=== PATIENT | male | born 1955 | race Hispanic/Latino ===

== ENCOUNTER 2017-10-07 07:54 | Inpatient (IN) | payer BC ==
[2017-09-30 11:09] VITALS: BMI 26.4
[2017-10-07] MEDS ORDERED: Absorbable Gelatin Sponge Size 100 ONE (08:38)
[2017-10-07] MEDS ORDERED: Rocuronium 10 mg/ml (5 ml) ONE (09:07)
[2017-10-07] MEDS ORDERED: Lidocaine 4% (Laryng-O-Jet) Kit MM ONE (09:07)
[2017-10-07] MEDS ORDERED: Succinylcholine 200 mg/10 ml Inj IV ONE (09:07)
[2017-10-07] MEDS ORDERED: Etomidate 20 mg/10ml Inj IV ONE (09:08)
[2017-10-07] MEDS ORDERED: Lactated Ringer's 1,000 ML IV ONE (10:00)
--- NOTE | 2017-10-07 12:07 | CP.PCM.HP ---
History of Present Illness - History of Present Illness History of Present Illness: 62 yr old M presented to same day surgery for scheduled right hip replacement s/ p fall at home a few months ago and failed conservative treatment including and not limited to anti-inflammatory medication, physical therapy and pain management. PMHx includes HTN, HLD, anxiety and arthritis. Patient seen and examined at bedside with attending-Dr. Lucas. Patient reports at this time his right hip pain is an 8/10. Denies chest pain, SOB, weakness, dizziness or visual changes. Surrogate decision maker: Agueda Gallardo (sister): [phone] PMD: Dr. Ruiz PMHx: HTN, HLD, anxiety and arthritis SurgHx: total Right knee replacement, total left knee replacement FMHx: mother at 71 from colon cancer, father at 69 from lung cancer SocHx: denies cigarette smoking, Etoh or drugs. reports occasionally smokes cigars. Lives with brother. Medications: Norvasc 10mg PO QD, Lipitor 10mg PO QHS, Zolpidem 10mg PO QHS, Xanax 2mg PO TID, Oxycodone 30 mg PO QID PRN pain Allergies: NKDA Present on Admission - Present on Admission Any Indicators Present on Admission: No History of DVT/PE: No History of Uncontrolled Diabetes: No Urinary Catheter: No Decubitus Ulcer Present: No History Surgical Site Infection Following: Orthopedic Procedures Review of Systems - Review of Systems All systems: reviewed and no additional remarkable complaints except (for what is mentioned in the HPI) - Constitutional Constitutional: absent: Chills, Fever - EENT Eyes: absent: Blurred Vision, Change in Vision Ears: absent: Dizziness Nose/Mouth/Throat: absent: Nasal Congestion, Nasal Discharge - Cardiovascular Cardiovascular: absent: Chest Pain, Dyspnea - Respiratory Respiratory: absent: Cough, Dyspnea - Gastrointestinal Gastrointestinal: absent: Abdominal Pain, Nausea - Genitourinary Genitourinary: absent: Difficulty Urinating, Dysuria - Musculoskeletal Musculoskeletal: Arthralgias (chronic intermittent mild knee pain) - Integumentary Integumentary: absent: Bleeding Lesions - Neurological Neurological: absent: Disequilibrium, Dizziness - Psychiatric Psychiatric: Anxiety. absent: Homicidal Ideation, Suicidal Ideation - Endocrine Endocrine: absent: Polydipsia, Polyphagia, Polyuria - Hematologic/Lymphatic Hematologic: absent: Easy Bleeding, Easy Bruising Past Patient History - Infectious Disease Hx of Infectious Diseases: None - Tetanus Immunizations Tetanus Immunization: Unknown - Past Medical History & Family History Past Medical History?: Yes - Past Social History Smoking Status: Former Smoker - CARDIAC Hx Cardiac Disorders: Yes Hx Hypercholesterolemia: Yes (sstopped cholesterol meds) Hx Hypertension: Yes - PULMONARY Hx Respiratory Disorders: No - NEUROLOGICAL Hx Neurological Disorder: No - HEENT Hx HEENT Problems: Yes Hx Cataracts: Yes Other/Comment: cateract extraction with implant. - RENAL Hx Chronic Kidney Disease: No - ENDOCRINE/METABOLIC Hx Endocrine Disorders: No - HEMATOLOGICAL/ONCOLOGICAL Hx Blood Disorders: Yes Hx AIDS: No Hx Anemia: Yes Hx Blood Transfusions: Yes Hx Human Immunodeficiency Virus (HIV): No - INTEGUMENTARY Hx Dermatological Problems: No - MUSCULOSKELETAL/RHEUMATOLOGICAL Hx Musculoskeletal Disorders: No Hx Arthritis: Yes Hx Back Pain: Yes Hx Falls: Yes (2013) Hx Herniated Disk: Yes Other/Comment: s/p Right TKR Oct 2015; wound vac, rolling walker - GASTROINTESTINAL Hx Gastrointestinal Disorders: No - GENITOURINARY/GYNECOLOGICAL Hx Genitourinary Disorders: No - PSYCHIATRIC Hx Psychophysiologic Disorder: Yes Hx Anxiety: Yes (xanax3) Hx Substance Use: No - SURGICAL HISTORY Hx Surgeries: Yes Hx Cataract Extraction: Yes (b/l with implant) Hx Joint Replacement: Yes (TKR Left 2011, TKR Right 10/2015) Hx Orthopedic Surgery: Yes (left knee replaced,corinne-tkr) Other/Comment: Aspiration Arthrogram left knee 08/09/14 - ANESTHESIA Hx Anesthesia: Yes Hx Anesthesia Reactions: No Hx Malignant Hyperthermia: No Has any member of the family had a problem w/ anesthesia?: No Meds Allergies/Adverse Reactions: Allergies Allergy/AdvReac Type Severity Reaction Status Date / Time No Known Allergies Allergy Verified 09/30/17 11:09 Physical Exam - Constitutional Appears: Non-toxic - Head Exam Head Exam: ATRAUMATIC, NORMOCEPHALIC - Eye Exam Eye Exam: EOMI, PERRL - ENT Exam ENT Exam: Mucous Membranes Moist - Neck Exam Neck exam: Positive for: Full Rom. Negative for: Lymphadenopathy - Respiratory Exam Respiratory Exam: Clear to Auscultation Bilateral, NORMAL BREATHING PATTERN - Cardiovascular Exam Cardiovascular Exam: REGULAR RHYTHM, +S1, +S2 - GI/Abdominal Exam GI & Abdominal Exam: Normal Bowel Sounds, Soft. absent: Tenderness - Extremities Exam Extremities exam: Positive for: full ROM. Negative for: pedal edema - Neurological Exam Neurological exam: Alert, CN II-XII Intact, Oriented x3 - Psychiatric Exam Psychiatric exam: Normal Affect, Normal Mood - Skin Skin Exam: Dry, Intact, Warm Results - Vital Signs Recent Vital Signs: Last Vital Signs Temp 98 F 10/07/17 09:33 Pulse 68 10/07/17 09:33 Resp 18 10/07/17 09:33 BP 125/71 10/07/17 09:33 Pulse Ox 988 H 10/07/17 09:33 - Labs Labs: Laboratory Results - last 24 hr 10/07/17 09:00 Blood Type B NEGATIVE Antibody Screen Negative Crossmatch See Detail BBK History Checked Patient has bt Assessment & Plan - Assessment and Plan (Free Text) Assessment: 62 yr old M presented to same day surgery for scheduled right hip replacement. Patient seen and examined at bedside with attending-Dr. Lucas. Patient is stable for surgery. -continue current management -resume home meds after surgery -start DVT prophylaxis after surgery - Date & Time Date: 10/07/17 Time: 09:50
[2017-10-07] MEDS ORDERED: oxyCODONE 10 mg Immediate Release Tab PO PRN (15:51)
--- NOTE | 2017-10-07 20:39 | CP.PCM.CON ---
History of Present Illness - History of Present Illness History of Present Illness: Consultation for abnormal EKG HPI 62-year-old male with past medical history significant for hypertension dyslipidemia anxiety severe osteoarthritis status post bilateral knee replacement who was scheduled to undergo right hip replacement yesterday status post fall a few months ago and failed conservative therapy with anti- inflammatory therapy and physical therapy who was scheduled to undergo his surgery but was noted to have PVCs on his EKG and Holter monitor and is being evaluated for preoperative cardiovascular risk stratification. According to the patient he was fairly active prior to the fall can do more than 4 metabolic equivalents of activity at baseline denies having any ischemic symptoms and had undergone an echocardiogram that was ordered by Dr. Ortiz about few years ago denies any chest pain shortness of breath palpitations PND's or orthopnea's fairly active at baseline with no active ischemic symptoms. He does complain of occasionally having a skipped beat every once in a few months which does have him concern for his cardiovascular evaluation. Past medical history as stated above significant for hypertension dyslipidemia advanced osteoarthritis status post bilateral knee replacements family history significant for colon cancer and lung cancer social history he smokes 1-2 cigars a week denies any alcohol or illicit drug use home medications include Norvasc Lipitor Xanax oxycodone allergies no known drug allergies. Review of Systems - Review of Systems All systems: reviewed and no additional remarkable complaints except - Constitutional Constitutional: As Per HPI - EENT Eyes: As Per HPI Ears: As Per HPI Nose/Mouth/Throat: As Per HPI - Cardiovascular Cardiovascular: As Per HPI - Respiratory Respiratory: As Per HPI - Gastrointestinal Gastrointestinal: As Per HPI - Genitourinary Genitourinary: As Per HPI - Reproductive: Male Reproductive:Male: As Per HPI - Musculoskeletal Musculoskeletal: As Per HPI - Integumentary Integumentary: As Per HPI - Neurological Neurological: As Per HPI - Psychiatric Psychiatric: As Per HPI - Endocrine Endocrine: As Per HPI - Hematologic/Lymphatic Hematologic: As Per HPI Past Patient History - Infectious Disease Hx of Infectious Diseases: None - Tetanus Immunizations Tetanus Immunization: Unknown - Past Medical History & Family History Past Medical History?: Yes - Past Social History Smoking Status: Former Smoker - CARDIAC Hx Cardiac Disorders: Yes Hx Hypercholesterolemia: Yes (sstopped cholesterol meds) Hx Hypertension: Yes - PULMONARY Hx Respiratory Disorders: No - NEUROLOGICAL Hx Neurological Disorder: No - HEENT Hx HEENT Problems: Yes Hx Cataracts: Yes Other/Comment: cateract extraction with implant. - RENAL Hx Chronic Kidney Disease: No - ENDOCRINE/METABOLIC Hx Endocrine Disorders: No - HEMATOLOGICAL/ONCOLOGICAL Hx Blood Disorders: Yes Hx AIDS: No Hx Anemia: Yes Hx Blood Transfusions: Yes Hx Human Immunodeficiency Virus (HIV): No - INTEGUMENTARY Hx Dermatological Problems: No - MUSCULOSKELETAL/RHEUMATOLOGICAL Hx Musculoskeletal Disorders: No Hx Arthritis: Yes Hx Back Pain: Yes Hx Falls: Yes (2013) Hx Herniated Disk: Yes Other/Comment: s/p Right TKR Oct 2015; wound vac, rolling walker - GASTROINTESTINAL Hx Gastrointestinal Disorders: No - GENITOURINARY/GYNECOLOGICAL Hx Genitourinary Disorders: No - PSYCHIATRIC Hx Psychophysiologic Disorder: Yes Hx Anxiety: Yes (xanax3) Hx Substance Use: No - SURGICAL HISTORY Hx Surgeries: Yes Hx Cataract Extraction: Yes (b/l with implant) Hx Joint Replacement: Yes (TKR Left 2011, TKR Right 10/2015) Hx Orthopedic Surgery: Yes (left knee replaced,corinne-tkr) Other/Comment: Aspiration Arthrogram left knee 08/09/14 - ANESTHESIA Hx Anesthesia: Yes Hx Anesthesia Reactions: No Hx Malignant Hyperthermia: No Has any member of the family had a problem w/ anesthesia?: No Meds Allergies/Adverse Reactions: Allergies Allergy/AdvReac Type Severity Reaction Status Date / Time No Known Allergies Allergy Verified 09/30/17 11:09 - Medications Medications: Current Medications Alprazolam (Xanax) 2 mg PO TID PRN PRN Reason: Anxiety Amlodipine Besylate (Norvasc) 10 mg PO DAILY [facility] Atorvastatin Calcium (Lipitor) 10 mg PO HS [facility] Dextrose/Sodium Chloride (Dextrose 5%-0.45% Ns 500 Ml) 500 mls @ 80 mls/hr IV .Q6H15M [facility] Stop: 10/08/17 19:07 Oxycodone HCl (Oxycodone Immediate Release Tab) 30 mg PO QID PRN PRN Reason: Pain, moderate (4-7) Zolpidem Tartrate (Ambien) 5 mg PO HS [facility] Physical Exam - Constitutional Appears: Well - Head Exam Head Exam: ATRAUMATIC, NORMAL INSPECTION, NORMOCEPHALIC - Eye Exam Eye Exam: EOMI, Normal appearance, PERRL Pupil Exam: NORMAL ACCOMODATION, PERRL - ENT Exam ENT Exam: Mucous Membranes Moist, Normal Exam - Neck Exam Neck exam: Positive for: Normal Inspection - Respiratory Exam Respiratory Exam: Clear to Auscultation Bilateral, NORMAL BREATHING PATTERN - Cardiovascular Exam Cardiovascular Exam: REGULAR RHYTHM, RRR, +S1, +S2, Systolic Murmur - GI/Abdominal Exam GI & Abdominal Exam: Normal Bowel Sounds, Soft. absent: Tenderness - Extremities Exam Extremities exam: Positive for: normal inspection - Back Exam Back exam: NORMAL INSPECTION - Neurological Exam Neurological exam: Alert, CN II-XII Intact, Normal Gait, Oriented x3, Reflexes Normal - Psychiatric Exam Psychiatric exam: Normal Affect, Normal Mood - Skin Skin Exam: Dry, Intact, Normal Color, Warm Results - Vital Signs Recent Vital Signs: Last Vital Signs Temp 97.8 F 10/07/17 16:13 Pulse 81 10/07/17 16:13 Resp 18 10/07/17 16:13 BP 119/68 10/07/17 16:13 Pulse Ox 94 L 10/07/17 16:13 - Labs Labs: Laboratory Results - last 24 hr 10/07/17 09:00 Blood Type B NEGATIVE Antibody Screen Negative Crossmatch See Detail BBK History Checked Patient has bt Assessment & Plan (1) Preop cardiovascular exam Assessment and Plan: As per ACC/AHA guidelines he can proceed with planned surgery with low risk for perioperative cardiac event will need outpt event monitor to assess for any arrhythmias Status: Acute (2) Abnormal EKG Assessment and Plan: PVC's noted hx of intermittent palpitations outpt event monitor Status: Acute (3) PVC (premature ventricular contraction) Status: Acute (4) Total knee replacement status Status: Acute (5) Hypertension Assessment and Plan: cont home meds Status: Chronic
--- NOTE | 2017-10-08 09:06 | CP.PCM.PN ---
Subjective - Date & Time of Evaluation Date of Evaluation: 10/08/17 Time of Evaluation: 09:57 - Subjective Subjective: Patient seen and examined at bedside with attending-Dr. Lucas. Awake, alert, cooperative with exam. Patient is NPO and aware he will go for right hip replacement later today. Denies chest pain, palpitations, SOB, headache or weakness. Objective - Vital Signs/Intake and Output Vital Signs (last 24 hours): Temp Pulse Resp BP Pulse Ox 98.2 F 65 20 113/71 97 10/08/17 08:04 10/08/17 08:04 10/08/17 08:04 10/08/17 08:04 10/08/17 08:04 - Medications Medications: Current Medications Alprazolam (Xanax) 2 mg PO TID PRN PRN Reason: Anxiety Last Admin: 10/08/17 06:35 Dose: 2 mg Amlodipine Besylate (Norvasc) 10 mg PO DAILY [facility] Atorvastatin Calcium (Lipitor) 10 mg PO [facility] Last Admin: 10/07/17 22:42 Dose: 10 mg Dextrose/Sodium Chloride (Dextrose 5%-0.45% Ns 500 Ml) 500 mls @ 80 mls/hr IV .Q6H15M [facility] Stop: 10/08/17 19:07 Last Admin: 10/08/17 06:31 Dose: 80 mls/hr Oxycodone HCl (Oxycodone Immediate Release Tab) 30 mg PO QID PRN PRN Reason: Pain, moderate (4-7) Zolpidem Tartrate (Ambien) 5 mg PO [facility] Last Admin: 10/07/17 22:44 Dose: 5 mg - Constitutional Appears: No Acute Distress - Head Exam Head Exam: ATRAUMATIC, NORMOCEPHALIC - Eye Exam Eye Exam: EOMI - ENT Exam ENT Exam: Mucous Membranes Moist - Neck Exam Neck Exam: Full ROM - Respiratory Exam Respiratory Exam: NORMAL BREATHING PATTERN - Cardiovascular Exam Cardiovascular Exam: REGULAR RHYTHM, +S1, +S2 - GI/Abdominal Exam GI & Abdominal Exam: Soft, Normal Bowel Sounds - Extremities Exam Extremities Exam: Full ROM. absent: Pedal Edema - Neurological Exam Neurological Exam: Alert, Awake, CN II-XII Intact Assessment and Plan - Assessment and Plan (Free Text) Assessment: 62 yr old M admitted for scheduled right hip replacement s/p xray finding of degenerative disease and chronic persistent pain after mechanical fall. Patient failed conservative treatment. Patient is medically stable for surgery and was cleared by cardiology. -continue current management -resume home meds after surgery -start DVT prophylaxis after surgery
--- NOTE | 2017-10-08 09:55 | CP.PCM.PN ---
<Giulia Perez - Last Filed: 10/08/17 09:50> Subjective - Date & Time of Evaluation Date of Evaluation: 10/08/17 Time of Evaluation: 09:50 - Subjective Subjective: PGY2 progress note for cardiology, Dr. Pressley 62 year old male with past medical history of HTN, HLD, anxiety and arthiritis presented to hospital for right hip replacement s/p fall a few weeks ago to be done by Dr. Briceno. Cardiology consulted for medical clearance. On admission , pt was noted to have an abnormal EKG showing NSR with 1 PVC. Pt seen and examined at bedside. No acute events overnight. Pt resting comfortably. Denies having any CP, SOB, abd pain, N/V/D/C, palpitations. 12 point ROS are negative except for the above mentioned. PMHx: stated above Sx; B/L TKR Social; denies tobacco, ETOH or drug use denies FHX of heart problems Medications: Norvasc 10mg PO QD, Lipitor 10mg PO QHS, Zolpidem 10mg PO QHS, Xanax 2mg PO TID, Oxycodone 30 mg PO QID PRN pain Allergies: NKDA Objective - Vital Signs/Intake and Output Vital Signs (last 24 hours): Temp Pulse Resp BP Pulse Ox 98.2 F 65 20 113/71 97 10/08/17 08:04 10/08/17 08:04 10/08/17 08:04 10/08/17 08:04 10/08/17 08:04 - Medications Medications: Current Medications Alprazolam (Xanax) 2 mg PO TID PRN PRN Reason: Anxiety Last Admin: 10/08/17 06:35 Dose: 2 mg Amlodipine Besylate (Norvasc) 10 mg PO DAILY [facility] Atorvastatin Calcium (Lipitor) 10 mg PO HS [facility] Last Admin: 10/07/17 22:42 Dose: 10 mg Dextrose/Sodium Chloride (Dextrose 5%-0.45% Ns 500 Ml) 500 mls @ 80 mls/hr IV .Q6H15M [facility] Stop: 10/08/17 19:07 Last Admin: 10/08/17 06:31 Dose: 80 mls/hr Oxycodone HCl (Oxycodone Immediate Release Tab) 30 mg PO QID PRN PRN Reason: Pain, moderate (4-7) Zolpidem Tartrate (Ambien) 5 mg PO HS [facility] Last Admin: 10/07/17 22:44 Dose: 5 mg - Constitutional Appears: Non-toxic, No Acute Distress - Head Exam Head Exam: ATRAUMATIC - ENT Exam ENT Exam: Mucous Membranes Moist - Respiratory Exam Respiratory Exam: Clear to Ausculation Bilateral. absent: Accessory Muscle Use , Rales, Rhonchi, Wheezes, Respiratory Distress - Cardiovascular Exam Cardiovascular Exam: REGULAR RHYTHM, +S1, +S2. absent: Gallop, Rubs, Murmur - GI/Abdominal Exam GI & Abdominal Exam: Soft, Normal Bowel Sounds. absent: Distended, Firm, Guarding, Rigid, Tenderness, Organomegaly - Extremities Exam Extremities Exam: absent: Pedal Edema, Tenderness Additional comments: B/L DP pulses present - Neurological Exam Neurological Exam: Alert, Awake, Oriented x3 - Psychiatric Exam Psychiatric exam: Normal Affect, Normal Mood - Skin Skin Exam: Dry, Intact, Normal Color, Warm Assessment and Plan - Assessment and Plan (Free Text) Assessment: 62 year old male with past medical history of HTN, HLD, anxiety and arthiritis is being seen for cardiac clearance for right hip surgery. EKG done yesterday showed NSR with one PVC 1. Cardiac clearance for ortho surgery - Pt has no history of CAD - EKG done on admission showed 1 PVC. Will consider checking electrolyte levels (Mg) - Pt has good functional capacity. 2. HTN - Continue to monitor VS - Currently on Norvasc 10 mg QD 3. HLD - Continue home medication, lipitor 10 mg po qd Case will be discussed with attending, Dr. Pressley <Rich Pressley - Last Filed: 10/08/17 10:31> Objective - Vital Signs/Intake and Output Vital Signs (last 24 hours): Temp Pulse Resp BP Pulse Ox 98.2 F 65 20 113/71 97 10/08/17 08:04 10/08/17 08:04 10/08/17 08:04 10/08/17 08:04 10/08/17 08:04 - Medications Medications: Current Medications Alprazolam (Xanax) 2 mg PO TID PRN PRN Reason: Anxiety Last Admin: 10/08/17 06:35 Dose: 2 mg Amlodipine Besylate (Norvasc) 10 mg PO DAILY [facility] Atorvastatin Calcium (Lipitor) [address] [facility] Last Admin: 10/07/17 22:42 Dose: 10 mg Dextrose/Sodium Chloride (Dextrose 5%-0.45% Ns 500 Ml) 500 mls @ 80 mls/hr IV .Q6H15M [facility] Stop: 10/08/17 19:07 Last Admin: 10/08/17 06:31 Dose: 80 mls/hr Oxycodone HCl (Oxycodone Immediate Release Tab) 30 mg PO QID PRN PRN Reason: Pain, moderate (4-7) Zolpidem Tartrate (Ambien) [address] [facility] Last Admin: 10/07/17 22:44 Dose: 5 mg Assessment and Plan (1) Preop cardiovascular exam Assessment & Plan: As per ACC/AHA guidelines he can proceed with planned surgery with low risk for perioperative cardiac event Status: Acute (2) Abnormal EKG Assessment & Plan: PVC's noted Status: Acute (3) PVC (premature ventricular contraction) Assessment & Plan: outpt event monitor Status: Acute (4) Total knee replacement status Status: Acute (5) Hypertension Assessment & Plan: cont home meds Status: Chronic Attending/Attestation - Attestation I have personally seen and examined this patient.: Yes I have fully participated in the care of the patient.: Yes I have reviewed all pertinent clinical information, including history, physical exam and plan: Yes
[2017-10-08] MEDS ORDERED: Thrombin Topical 5,000 Int Units Spray Kit ONE (10:54)
[2017-10-08] MEDS ORDERED: Bupivacaine 0.5% Inj(30mL) ONE (10:54)
[2017-10-08] MEDS ORDERED: Bacitracin Ointment 30 GM TUBE ONE (10:54)
[2017-10-08] MEDS ORDERED: Absorbable Gelatin Sponge Size 100 ONE (14:57)
[2017-10-08] MEDS ORDERED: Rocuronium 10 mg/ml (5 ml) ONE ×2 (15:00→19:02)
[2017-10-08] MEDS ORDERED: Succinylcholine 200 mg/10 ml Inj IV ONE (15:00)
[2017-10-08] MEDS ORDERED: Propofol 10 mg/ml Inj (20 ML) ONE (15:01)
[2017-10-08] MEDS ORDERED: Phenylephrine 10 mg/ml Inj ONE (15:04)
[2017-10-08] MEDS ORDERED: Lactated Ringer's 1,000 ML IV ONE ×2 (15:50→19:00)
[2017-10-08] MEDS ORDERED: Morphine 1 mg/ml preservative-free Inj(Duramorph) ONE (15:51)
[2017-10-08] MEDS ORDERED: Midazolam 2 MG/2 ML VIAL ONE (15:51)
[2017-10-08] MEDS ORDERED: Sodium Chloride 0.9% 1,000 ML IV ONE (15:55)
[2017-10-08] MEDS ORDERED: Dexamethasone 4 mg/1 ml ONE (17:03)
[2017-10-08] MEDS ORDERED: HEMOSTATIC MATRIX 10 ML DIS.NEEDLE TOP ONE (18:58)
--- NOTE | 2017-10-08 19:24 | RAD ---
PROCEDURE: Intraoperative Fluoroscopy. HISTORY: Right hip arthritis FINDINGS: Fluoroscopic assistance was provided for right total hip replacement.
--- NOTE | 2017-10-08 19:39 | PCM.SURG1 ---
Surgeon's Initial Post Op Note - Surgeon's Notes Surgeon: Janak Cinder Snapper: 1st assist Dr Jarrod Agarwal/ 2nd assist MIGUEL Schuster Type of Anesthesia: General Endo, Spinal Anesthesia Administered By: DR Marcio Lang Pre-Operative Diagnosis: post traumatic Osteoarthritis R HIP Operative Findings: as above. severe synovits. labral tear R Hip Post-Operative Diagnosis: as above Operation Performed: R THR (anterior approach). femoral neck osteoptmy. arthrotomy/synopvectomy. release iliopsoas tendon Specimen/Specimens Removed: bone/synovium/.cartiulage/tendon Estimated Blood Loss: EBL {In ML}: 200 Blood Products Given: N/A Drains Used: No Drains Post-Op Condition: Good Date of Surgery/Procedure: 10/08/17 Time of Surgery/Procedure: 17:05 (1550-time in room)
[2017-10-08] MEDS ORDERED: HYDROmorphone 0.5 mg/0.5 ml ISec IVP PRN (19:49)
[2017-10-08] MEDS: Lactated Ringer's 1,000 ML IV SCH (21:57)
[2017-10-08] MEDS ORDERED: DiphenhydrAMINE 50 mg/ml Inj IVP PRN (22:15)
[2017-10-08] MEDS ORDERED: Naloxone 0.4 mg/ml Inj (Adult) IVP PRN (22:15)
[2017-10-08] MEDS: ceFAZolin 1 GM in Sodium Chloride 0.9% 100 ML IVPB SCH (23:49)
[2017-10-09] MEDS: Lactated Ringer's 1,000 ML IV SCH ×3 (02:33→16:29)
[2017-10-09 06:20] LABS: HEMOGLOBIN 10.9 g/dL (12.0-18.0); MEAN CELL VOLUME 86.1 fl (80.0-94.0); MEAN CORPUSCULAR HGB CONC 33.7 g/dL (33.0-37.0); RBC 3.75 Mil/uL (4.40-5.90); RED CELL DISTRIBUTION WIDTH 13.1 % (11.5-14.5); WHITE BLOOD COUNT 13.6 K/uL (4.8-10.8)
[2017-10-09 07:12] LABS: BLOOD UREA NITROGEN 11 mg/dl (9-20); CALCIUM 8.4 mg/dL (8.4-10.2); GFR AFRICAN-AMERICAN > 60; GFR NON-AFRICAN AMERICAN > 60
--- NOTE | 2017-10-09 07:37 | RAD ---
PROCEDURE: Right Hip with Pelvis Portable Radiographs. HISTORY: s/p R THR COMPARISON: Right hip with pelvis radiographs 09/30/2017. FINDINGS: BONES: Patient now seen to be status post right total hip replacement with prostatic apparatus appearing in good apparent position. No interval fracture or definitive dislocation. Postoperative changes seen in local soft tissues surrounding the right hip joint with skin kate noted laterally. No destructive bony lesion appreciated. OTHER FINDINGS: None. IMPRESSION: Status post right total hip replacement as discussed above.
[2017-10-09 07:58] VITALS: BP 143/74; PULSE 86; RESP 20; O2SAT 98
[2017-10-09] MEDS: ceFAZolin 1 GM in Sodium Chloride 0.9% 100 ML IVPB SCH (09:38)
[2017-10-09] MEDS ORDERED: Enoxaparin 40 mg Syringe SC SCH ×2 (10:30→19:00)
--- NOTE | 2017-10-09 13:05 | OP ---
PROCEDURE DATE: 10/08/2017 PREOPERATIVE DIAGNOSIS: Post-traumatic osteoarthritis of the right hip. POSTOPERATIVE DIAGNOSES: Post-traumatic osteoarthritis of the right hip with severe synovitis and labral tear of the right hip. SURGEON: Curt Briceno MD. DRYWALL FINISHING FOREMAN: Kelli Agarwal MD. SECOND PATTERN DEVELOPER: Nery Montiel, certified registered nursing first aid instructor. TYPE OF ANESTHESIA: General endotracheal and spinal anesthesia. ANESTHESIA ADMINISTERED BY: Agusto Allen MD. OPERATIVE FINDINGS: Severe post-traumatic osteoarthritis of the right hip with synovitis of the right hip and a labral tear of the right hip. OPERATIONS PERFORMED: 1. Right total hip replacement, anterior approach. 2. Femoral neck osteotomy. 3. Arthrotomy and synovectomy and debridement of glenoid labral tear. 4. Release iliopsoas tendon. SPECIMENS REMOVED: Bone, synovium, cartilage, and portion of tendon. ESTIMATED BLOOD LOSS: Approximately 200 mL. BLOOD PRODUCTS GIVEN: None. DRAINS: None. POSTOPERATIVE CONDITION: Stable. TIME OF SURGERY: 1705 incision time. Time in the room 1550. OPERATIVE INDICATION: Abel Pretty is a 62-year-old gentleman who is status post an injury in a fall at [employer] [facility]. The patient's hips were well compensated prior to this fall and after the fall, the patient noted marked deterioration. The patient was excellent in conservative management consisting of anti-inflammatory medication, activity modification, and weight loss. The patient underwent significant weight loss. The symptomatology did not change. The patient has severe and persistent pain in the hip. Pros, cons, risks, and benefits of hip replacement arthroplasty were discussed. Possibility of mechanical failure, infection, thromboembolic disease, secondary or tertiary surgery were discussed. The patient can no longer withstand the discomfort and wished the surgery to be accomplished. OPERATIVE PROCEDURE: After the satisfactory induction of spinal and general anesthesia by Dr. Allen; after having identified side, site, and procedure and a critical pause/time-out; after the satisfactory induction of the anesthetic, the patient identified as Abel Pretty in the supine position with all bony prominences well padded. The patient was placed in the [facility] traction positioner. All bony prominences well padded. After having obtained informed consent; after having identified side, site and procedure and a critical pause/time-out, the right lower extremity was prepped and free draped in the usual fashion for lower extremity surgery. The topographic anatomy of the hip was marked, the anterosuperior iliac spine. Under the surgeon's direction, the fluoroscope was positioned, video images were generated, therapeutic decisions were made therefrom. This having been accomplished and after having obtained informed consent, an incision was described 3 cm posterior to the ASIS and 1 fingerbreadth distal. The incision was superficial to the tensor fascia femoris muscle and extended approximately 4-1/2 inches distally, superficial to the muscle belly. The skin incision was carried down through the skin and subcutaneous tissue. The fascia of the tensor fascia femoris was identified and grasped with an Allis clamp. The tensor fascia femoris muscle was a digastric muscle and the muscle belly was brought down. The Medacta retractor was placed and the fascia at the posterior aspect was developed. This having been accomplished, the Medacta retractor was placed deep to the rectus femoris and placed in a horizontal latitude. The fascia was identified and carefully divided. The reflected head of rectus femoris was released with internal rotation of the hip and this having been accomplished, the wound was thoroughly irrigated. The anterior branch of the lateral femoral circumflex vessels were controlled using tonsil clamps and Aquamantys. Hemostasis having been controlled, the capsulotomy was accomplished extending from the lateral aspect of the acetabulum. Medacta retractors were placed. Modified Hohmann retractors were placed on both sides of the femoral neck. The dissection of the capsule was carried down medially to the intertrochanteric tubercle. This was elevated and brought back laterally. This flap was raised intact. This having been accomplished, the adhesions were released. The retractors were placed and with two turns of traction and with reference virtually intraoperatively to planning of the femoral neck osteotomy, the femoral neck osteotomy was critical to the leg length. Femoral neck osteotomy was accomplished and with further traction and rotation, the head and neck were delivered into the wound. Using a 1/2-inch curved osteotome, the cut surface was brought into the wound. The corkscrew was placed. The corkscrew was used to remove the femoral head with adhesions. This having been accomplished, there was found to be a contracture of the pubofemoral ligament which was released and the acetabulum was exposed. The labrum was excised. The deep modified Charnley retractor was placed exposing the acetabulum. The superior aspect of the acetabulum was identified and the reaming was accomplished. Femoral head was measured 48 mm. This was removed. The pulvinar was excised. Arthrotomy and synovectomy were accomplished and there was found to be evidence of a large labral tear. The labral tear was excised as well. This having been accomplished, reaming commenced with a 46 mm reamer to 50 mm reamer in the approximately 40 degrees of abduction and 20 degrees of anteversion. The reamings were denuded of articular cartilage to allow bone grating. Arthrotomy and synovectomy having been accomplished, arthrotomy and excision of labrum having been accomplished, careful planning of the intraoperative femoral neck osteotomy had been accomplished as well. This having been accomplished, the trialing was accomplished. The cup was found to be excellent. Bone grafting was accomplished to the acetabulum and the 50 mm Medacta cup was placed in approximately 40 degrees of abduction and 15-20 degrees of anteversion. The cup position was found to be excellent and stable. This having been accomplished, attention was turned to the femur. The bone hook was placed. There was found to be capsular contractures. The pubofemoral ligament was released. A portion of the iliopsoas tendon was released as well. This having been accomplished, further external rotation was accomplished and in the area of the piriformis fossa using great care to control hemostasis, the soft tissue structures were released from the piriformis fossa. This having been accomplished, the iliofemoral ligament was released. This having been accomplished, the femoral neck was mobilized and was exposed using the so called *------* retractors medially and anteriorly. The proximal femur was identified and with abduction was delivered into the wound, the box chisel was used to remove the bridge of bone between the neck and the trochanter. The bur was found to enter the canal. The rasp was found to enter the canal. Sequential broaching was carried out to a #3 femoral component. Broach was introduced. Trialing was accomplished with a 28 mm standard neck with the 50 mm outer bearing. The hip was reduced and found to be stable in all planes. This having been accomplished, the hip was again dislocated. Hemostasis was controlled with the Aquamantys. The #3 Medacta femoral component was introduced, non-collared. The standard neck with the 50 mm outer bearing was placed, ceramic. The hip was reduced and found to be stable in all planes. The wound was thoroughly irrigated. Hemostasis was controlled. Iliopsoas tendon had released. The leg lengths were essentially equal on verification with image intensification views. This having been accomplished, hemostasis was controlled with the Aquamantys, the capsular layer was replaced, and closure was in layers with 0 Quill followed by 0 Quill and kate for skin. Compression dressing was applied. The patient was stable in recovery. Neurocirculatory status was intact. Curt Briceno MD
--- NOTE | 2017-10-09 13:40 | CP.PCM.PN ---
Subjective - Date & Time of Evaluation Date of Evaluation: 10/09/17 Time of Evaluation: 13:38 - Subjective Subjective: Patient states pain is well controlled. He denies numbness/tingling. Good appetite, denies CP/SOb/dizziness/ Objective - Vital Signs/Intake and Output Vital Signs (last 24 hours): Temp Pulse Resp BP Pulse Ox 100.9 F H 86 20 143/74 98 10/09/17 07:57 10/09/17 09:38 10/09/17 07:57 10/09/17 09:38 10/09/17 07:57 Intake and Output: 10/09/17 10/09/17 06:59 18:59 Intake Total 400 Balance 400 - Medications Medications: Current Medications Alprazolam (Xanax) 2 mg PO TID PRN PRN Reason: Anxiety Last Admin: 10/09/17 07:51 Dose: 2 mg Amlodipine Besylate (Norvasc) 10 mg PO DAILY [facility] Last Admin: 10/09/17 09:38 Dose: 10 mg Atorvastatin Calcium (Lipitor) 10 mg PO HS [facility] Last Admin: 10/08/17 23:35 Dose: 10 mg Diphenhydramine HCl (Benadryl) 25 mg IVP Q6 PRN PRN Reason: Itching / Pruritus Enoxaparin Sodium (Lovenox) 40 mg SC DAILY [facility] PRN Reason: Protocol Hydromorphone HCl (Dilaudid 0.2 Mg/Ml [employer]) 0 mg IV PRN PRN; Protocol PRN Reason: Pain, severe (8-10) Last Admin: 10/09/17 01:00 Dose: 6 mg Lactated Ringer's (Lactated Ringer's) 1,000 mls @ 100 mls/hr IV .Q10H [facility] Last Admin: 10/09/17 06:07 Dose: Not Given Naloxone HCl (Narcan) 0.1 mg IVP Q2M PRN PRN Reason: Other Ondansetron HCl (Zofran Inj) 4 mg IVP Q8 PRN PRN Reason: Nausea/Vomiting Oxycodone HCl (Oxycodone Immediate Release Tab) 30 mg PO QID PRN PRN Reason: Pain, moderate (4-7) Sertraline HCl (Zoloft) 50 mg PO [facility] Last Admin: 10/08/17 23:35 Dose: Not Given Tamsulosin HCl (Flomax) 0.4 mg PO DAILY [facility] Last Admin: 10/09/17 09:38 Dose: 0.4 mg Zolpidem Tartrate (Ambien) 5 mg PO HS PRN PRN Reason: Insomnia - Labs Labs: 10/09/17 05:15 10/09/17 05:15 - Extremities Exam Additional comments: RLE: +ROM ankle/toes, sensation intact +DP/PT Assessment and Plan (1) Primary osteoarthritis of right hip Assessment & Plan: POD#1 s/p right anterior THR -PT/OT -VTE proph -OOB at this time -orthopedically stable, plan TCU -patient seen and examined by Dr. Briceno this am, agrees with above Status: Acute
[2017-10-09] MEDS ORDERED: Oxycodone/Acetaminophen 5/325 mg Tab PO PRN ×2 (14:53→14:54)
[2017-10-09 16:56] VITALS: TEMP 100.6
--- NOTE | 2017-10-10 02:19 | CP.PCM.DIS ---
Provider - Provider Date of Admission: 10/07/17 12:58 Attending physician: Edson Lucas MD Primary care physician: Raffy Ruiz MD Consults: Dr. rBiceno-orthopedic surgery, Dr. Pressley-cardiology Time Spent in preparation of Discharge (in minutes): 30 Diagnosis - Discharge Diagnosis (1) Osteoarthritis (arthritis due to wear and tear of joints) Status: Chronic Priority: Low (2) Status post total hip replacement, right Status: Acute Priority: Low Hospital Course - Lab Results Lab Results: Most Recent Lab Values WBC 13.6 K/uL (4.8-10.8) H D 10/09/17 05:15 RBC 3.75 Mil/uL (4.40-5.90) L 10/09/17 05:15 Hgb 10.9 g/dL (12.0-18.0) L D 10/09/17 05:15 Hct 32.3 % (35.0-51.0) L 10/09/17 05:15 MCV 86.1 fl (80.0-94.0) 10/09/17 05:15 MCH 29.0 pg (27.0-31.0) 10/09/17 05:15 MCHC 33.7 g/dL (33.0-37.0) 10/09/17 05:15 RDW 13.1 % (11.5-14.5) 10/09/17 05:15 Plt Count 243 K/uL (130-400) 10/09/17 05:15 Sodium 136 mmol/l (132-148) 10/09/17 05:15 Potassium 3.8 MMOL/L (3.6-5.0) 10/09/17 05:15 Chloride 100 mmol/L (98-107) 10/09/17 05:15 Carbon Dioxide 26 mmol/L (22-30) 10/09/17 05:15 Anion Gap 14 (10-20) 10/09/17 05:15 BUN 11 mg/dl (9-20) 10/09/17 05:15 Creatinine 0.7 mg/dl (0.8-1.5) L 10/09/17 05:15 Est GFR ( Amer) > 60 10/09/17 05:15 Est GFR (Non-Af Amer) > 60 01/12/18 05:15 Random Glucose 101 mg/dL (75-110) 10/09/17 05:15 Calcium 8.4 mg/dL (8.4-10.2) 10/09/17 05:15 Blood Type B NEGATIVE 10/07/17 09:00 Antibody Screen Negative 10/07/17 09:00 Crossmatch See Detail 10/07/17 09:00 BBK History Checked Patient has bt 10/07/17 09:00 - Hospital Course Hospital Course: 62 yr old M POD # 1 s/p total right hip replacement secondary to post-traumatic osteoarthritis and chronic persistent pain after mechanical fall. Patient failed conservative treatment. Patient is medically stable for discharge to TCU for PT/OT. - Date & Time of H&P Date of H&P: 10/07/17 Time of H&P: 12:05 Discharge Exam - Head Exam Head Exam: ATRAUMATIC, NORMOCEPHALIC - Eye Exam Eye Exam: EOMI Pupil Exam: NORMAL ACCOMODATION - ENT Exam ENT Exam: Mucous Membranes Dry - Neck Exam Neck exam: Full Rom - Respiratory Exam Respiratory Exam: Respiratory Distress, NORMAL BREATHING PATTERN. absent: Rales - Cardiovascular Exam Cardiovascular Exam: REGULAR RHYTHM, +S1, +S2 - GI/Abdominal Exam GI & Abdominal Exam: Normal Bowel Sounds, Soft. absent: Tenderness - Neurological Exam Neurological exam: Alert, CN II-XII Intact, Normal Gait - Psychiatric Exam Psychiatric exam: Normal Affect, Normal Mood - Skin Skin Exam: Dry, Normal Color, Warm Discharge Plan - Follow Up Plan Condition: GOOD Disposition: REHAB FACILITY/REHAB UNIT Instructions: Total Hip Replacement (DC) Referrals: Raffy Ruiz MD [Primary Care Provider] - Clinical Quality Measures - Date & Time of Discharge Summary Date of Discharge Summary: 10/09/17 Time of Discharge Summary: 15:00
== END 2017-10-09 18:29 | DRG 470 ==
LOC: H.OPSURG 07:54 → OBSVTOIN 12:58 → H.MEDSURG1 12:58 → UNDOADMOB 14:48 → H.MEDSURG1 14:48
PROVIDERS: ADMIT Family Medicine; ATTEND Family Medicine
PROC: 0SB90ZZ Excision of Right Hip Joint, Open Approach (ICD-10-PCS; 2017-10-08)
PROC: 0SR90JZ Replacement of Right Hip Joint with Synthetic Substitute, Open Approach (ICD-10-PCS; principal; 2017-10-08 13:00)
DX: M16.51 Unilateral post-traumatic osteoarthritis, right hip (principal); E78.5 Hyperlipidemia, unspecified; W19.XXXA Unspecified fall, initial encounter; I10 Essential (primary) hypertension; M24.551 Contracture, right hip; M65.9 Synovitis and tenosynovitis, unspecified; Y93.9 Activity, unspecified; Y92.009 Unspecified place in unspecified non-institutional (private) residence as the place of occurrence of the external cause; S73.191A Other sprain of right hip, initial encounter; I49.3 Ventricular premature depolarization; Z96.653 Presence of artificial knee joint, bilateral; Z87.891 Personal history of nicotine dependence; F41.9 Anxiety disorder, unspecified; G89.29 Other chronic pain

== ENCOUNTER 2017-10-09 14:48 | Inpatient (IN) | payer BC ==
[2017-09-30 11:09] VITALS: BMI 26.4
[2017-10-09 20:23] VITALS: RESP 20
[2017-10-09] MEDS ORDERED: Oxycodone/Acetaminophen 5/325 mg Tab PO PRN (21:08)
[2017-10-09] MEDS: Oxycodone/Acetaminophen 5/325 mg Tab PO PRN (21:35)
[2017-10-10] MEDS: Enoxaparin 40 mg Syringe SC SCH (09:13)
[2017-10-10 10:01] LABS: HEMOGLOBIN 9.3 g/dL (12.0-18.0); MEAN CELL VOLUME 86.5 fl (80.0-94.0); MEAN CORPUSCULAR HEMOGLOBIN 29.6 pg (27.0-31.0); MEAN CORPUSCULAR HGB CONC 34.3 g/dL (33.0-37.0); RBC 3.12 Mil/uL (4.40-5.90); RED CELL DISTRIBUTION WIDTH 13.6 % (11.5-14.5); WHITE BLOOD COUNT 10.6 K/uL (4.8-10.8)
[2017-10-10 10:03] LABS: BLOOD UREA NITROGEN 12 mg/dl (9-20); CALCIUM 8.4 mg/dL (8.4-10.2); GFR AFRICAN-AMERICAN > 60; GFR NON-AFRICAN AMERICAN > 60
--- NOTE | 2017-10-10 11:04 | CP.PCM.PN ---
Subjective - Date & Time of Evaluation Date of Evaluation: 10/10/17 Time of Evaluation: 11:00 - Subjective Subjective: PD#1-s/p R THR Objective - Vital Signs/Intake and Output Vital Signs (last 24 hours): Temp Pulse Resp BP Pulse Ox 98.1 F 83 20 103/58 L 94 L 10/10/17 08:33 10/10/17 09:14 10/10/17 08:33 10/10/17 09:14 10/10/17 08:33 - Medications Medications: Current Medications Acetaminophen (Tylenol 325mg Tab) 650 mg PO Q6 PRN PRN Reason: Temperature Last Admin: 10/10/17 06:45 Dose: 650 mg Alprazolam (Xanax) 2 mg PO TID PRN PRN Reason: Anxiety Amlodipine Besylate (Norvasc) 10 mg PO DAILY [facility] Last Admin: 10/10/17 09:14 Dose: 10 mg Atorvastatin Calcium (Lipitor) 10 mg PO HS [facility] Last Admin: 10/09/17 21:37 Dose: 10 mg Diphenhydramine HCl (Benadryl) 25 mg PO Q8 PRN PRN Reason: Itching / Pruritus Enoxaparin Sodium (Lovenox) 40 mg SC DAILY [facility] PRN Reason: Protocol Last Admin: 10/10/17 09:13 Dose: 40 mg Oxycodone/Acetaminophen (Percocet 5/325 Mg Tab) 1 tab PO Q4 PRN PRN Reason: Pain, moderate (4-7) Stop: 10/12/17 21:09 Oxycodone/Acetaminophen (Percocet 5/325 Mg Tab) 2 tab PO Q4 PRN PRN Reason: Pain, severe (8-10) Stop: 10/12/17 21:09 Last Admin: 10/09/17 21:35 Dose: 2 tab Sertraline HCl (Zoloft) 50 mg PO HS [facility] Last Admin: 10/09/17 21:37 Dose: 50 mg Tamsulosin HCl (Flomax) 0.4 mg PO DAILY [facility] Last Admin: 10/10/17 09:13 Dose: 0.4 mg Zolpidem Tartrate (Ambien) 10 mg PO HS [facility] Last Admin: 10/09/17 23:31 Dose: 10 mg - Labs Labs: 10/10/17 08:45 10/10/17 08:45 - Additional Findings Additional findings: Objective systemic- wnl Musculoskekltal stance/gait- defrred R hip wound benign N/V intact no gross neuro defitis post op Xrays- excellent position of construct Assessment and Plan - Assessment and Plan (Free Text) Assessment: s/p R THR partial weigth bearing with walker orthopedically stable physio
[2017-10-10] MEDS: Oxycodone/Acetaminophen 5/325 mg Tab PO PRN ×2 (16:52→23:07)
[2017-10-11] MEDS: Enoxaparin 40 mg Syringe SC SCH (08:51)
[2017-10-11] MEDS ORDERED: ceFAZolin 1 GM in Sodium Chloride 0.9% 100 ML IVPB SCH (21:00)
[2017-10-12] MEDS: ceFAZolin 1 GM in Sodium Chloride 0.9% 100 ML IVPB SCH ×3 (04:37→20:20)
[2017-10-12 05:46] LABS: HEMOGLOBIN 8.5 g/dL (12.0-18.0); MEAN CELL VOLUME 86.2 fl (80.0-94.0); MEAN CORPUSCULAR HEMOGLOBIN 29.9 pg (27.0-31.0); MEAN CORPUSCULAR HGB CONC 34.7 g/dL (33.0-37.0); RBC 2.85 Mil/uL (4.40-5.90); RED CELL DISTRIBUTION WIDTH 13.1 % (11.5-14.5); WHITE BLOOD COUNT 7.8 K/uL (4.8-10.8)
[2017-10-12] MEDS: Enoxaparin 40 mg Syringe SC SCH (08:24)
--- NOTE | 2017-10-12 09:46 | CP.PCM.HP ---
History of Present Illness - History of Present Illness History of Present Illness: This is a 62 y/o male admitted [facility] right [facility]. He has been having progressive pain n the right hip and failed conservative measures. He has a hx of recent knee replacement. Has HTN , hyperlipidemia , anxiety and OA. he developed post op fevers and noted slightly low Hgb. Present on Admission - Present on Admission Any Indicators Present on Admission: No History of DVT/PE: No History of Uncontrolled Diabetes: No Urinary Catheter: No Decubitus Ulcer Present: No Review of Systems - Musculoskeletal Musculoskeletal: Abnormal Gait, Arthralgias Past Patient History - Infectious Disease Hx of Infectious Diseases: None - Tetanus Immunizations Tetanus Immunization: Unknown - Past Medical History & Family History Past Medical History?: Yes - Past Social History Smoking Status: Never Smoked - CARDIAC Hx Hypercholesterolemia: Yes Hx Hypertension: Yes - PULMONARY Hx Respiratory Disorders: No - NEUROLOGICAL Hx Neurological Disorder: No - HEENT Hx HEENT Problems: Yes Hx Cataracts: Yes Other/Comment: cateract extraction with implant. - RENAL Hx Chronic Kidney Disease: No - ENDOCRINE/METABOLIC Hx Endocrine Disorders: No - HEMATOLOGICAL/ONCOLOGICAL Hx AIDS: No Hx Human Immunodeficiency Virus (HIV): No - INTEGUMENTARY Hx Dermatological Problems: No - MUSCULOSKELETAL/RHEUMATOLOGICAL Hx Falls: No - GASTROINTESTINAL Hx Gastrointestinal Disorders: No - GENITOURINARY/GYNECOLOGICAL Hx Genitourinary Disorders: No - PSYCHIATRIC Hx Psychophysiologic Disorder: Yes Hx Anxiety: Yes (xanax3) Hx Substance Use: No - SURGICAL HISTORY Hx Surgeries: Yes Hx Cataract Extraction: Yes (b/l with implant) Hx Joint Replacement: Yes (TKR Left 2011, TKR Right 10/2015) Hx Orthopedic Surgery: Yes (left knee replaced,[id number]-tkr) Other/Comment: Aspiration Arthrogram left knee 08/09/14 - ANESTHESIA Hx Anesthesia: Yes Hx Anesthesia Reactions: No Hx Malignant Hyperthermia: No Meds Allergies/Adverse Reactions: Allergies Allergy/AdvReac Type Severity Reaction Status Date / Time No Known Allergies Allergy Verified 10/09/17 18:29 Physical Exam - Head Exam Head Exam: NORMAL INSPECTION - Eye Exam Eye Exam: Normal appearance - ENT Exam ENT Exam: Mucous Membranes Moist - Respiratory Exam Respiratory Exam: Clear to Auscultation Bilateral - Cardiovascular Exam Cardiovascular Exam: REGULAR RHYTHM - GI/Abdominal Exam GI & Abdominal Exam: Normal Bowel Sounds - Neurological Exam Neurological exam: CN II-XII Intact, Oriented x3 Results - Vital Signs Recent Vital Signs: Last Vital Signs Temp 97.9 F 10/12/17 08:09 Pulse 80 10/12/17 08:24 Resp 20 10/12/17 08:09 BP 107/55 L 10/12/17 08:24 Pulse Ox 100 10/12/17 08:09 - Labs Result Diagrams: 10/12/17 05:20 10/10/17 08:45 Labs: Laboratory Results - last 24 hr 10/12/17 05:20 WBC 7.8 RBC 2.85 L Hgb 8.5 L Hct 24.6 L MCV 86.2 MCH 29.9 MCHC 34.7 RDW 13.1 Plt Count 198 Assessment & Plan (1) Gait abnormality Status: Acute (2) Status post total hip replacement, right Status: Acute Priority: Low (3) Anxiety Status: Chronic (4) Hypertension Status: Chronic (5) Osteoarthritis (arthritis due to wear and tear of joints) Status: Chronic Priority: Low - Assessment and Plan (Free Text) Plan: Cont meds Cont tx Cont PT Pain meds check cbc if fever persist or recurrent will start Ancef.
--- NOTE | 2017-10-12 09:50 | CP.PCM.PN ---
Subjective - Date & Time of Evaluation Date of Evaluation: 10/11/17 Time of Evaluation: 15:30 - Subjective Subjective: Patient has some nausea. Noted recurrent low grade fever No rise n WBC. Did well with PT. Objective - Vital Signs/Intake and Output Vital Signs (last 24 hours): Temp Pulse Resp BP Pulse Ox 97.9 F 80 20 107/55 L 100 10/12/17 08:09 10/12/17 08:24 10/12/17 08:09 10/12/17 08:24 10/12/17 08:09 - Medications Medications: Current Medications Acetaminophen (Tylenol 325mg Tab) 650 mg PO Q6 PRN PRN Reason: Temperature Last Admin: 10/11/17 20:12 Dose: 650 mg Alprazolam (Xanax) 2 mg PO TID PRN PRN Reason: Anxiety Amlodipine Besylate (Norvasc) 10 mg PO DAILY [facility] Last Admin: 10/12/17 08:24 Dose: 10 mg Atorvastatin Calcium (Lipitor) 10 mg PO HS [facility] Last Admin: 10/11/17 21:23 Dose: 10 mg Diphenhydramine HCl (Benadryl) 25 mg PO Q8 PRN PRN Reason: Itching / Pruritus Docusate Sodium (Colace) 100 mg PO BID [facility] Last Admin: 10/12/17 08:23 Dose: 100 mg Enoxaparin Sodium (Lovenox) 40 mg SC DAILY [facility] PRN Reason: Protocol Last Admin: 10/12/17 08:24 Dose: 40 mg Ferrous Sulfate (Feosol) 325 mg PO DAILY [facility] Cefazolin Sodium 1 gm/ Sodium (Chloride) 100 mls @ 100 mls/hr IVPB Q8@0500,1300 ,2100 [facility] PRN Reason: Protocol Last Admin: 10/12/17 04:37 Dose: 100 mls/hr Lactulose (Enulose) 20 gm PO DAILY PRN PRN Reason: Constipation Ondansetron HCl (Zofran Inj) 4 mg IVP Q4 PRN PRN Reason: Nausea/Vomiting Last Admin: 10/11/17 12:45 Dose: 4 mg Oxycodone/Acetaminophen (Percocet 5/325 Mg Tab) 1 tab PO Q4 PRN PRN Reason: Pain, moderate (4-7) Stop: 10/12/17 21:09 Oxycodone/Acetaminophen (Percocet 5/325 Mg Tab) 2 tab PO Q4 PRN PRN Reason: Pain, severe (8-10) Stop: 10/12/17 21:09 Last Admin: 10/10/17 23:07 Dose: 2 tab Sertraline HCl (Zoloft) 50 mg PO [facility] Last Admin: 10/11/17 21:23 Dose: 50 mg Tamsulosin HCl (Flomax) 0.4 mg PO DAILY [facility] Last Admin: 10/12/17 08:23 Dose: 0.4 mg Zolpidem Tartrate (Ambien) 10 mg PO [facility] Last Admin: 10/11/17 22:07 Dose: 10 mg - Labs Labs: 10/12/17 05:20 10/10/17 08:45 - Head Exam Head Exam: NORMAL INSPECTION - Eye Exam Eye Exam: Normal appearance - ENT Exam ENT Exam: Mucous Membranes Moist - Respiratory Exam Respiratory Exam: Clear to Ausculation Bilateral - Cardiovascular Exam Cardiovascular Exam: REGULAR RHYTHM - GI/Abdominal Exam GI & Abdominal Exam: Normal Bowel Sounds - Neurological Exam Neurological Exam: Awake, Oriented x3 - Psychiatric Exam Psychiatric exam: Normal Mood Assessment and Plan (1) Gait abnormality Status: Acute (2) Status post total hip replacement, right Status: Acute (3) Anxiety Status: Chronic (4) Hypertension Status: Chronic (5) Osteoarthritis (arthritis due to wear and tear of joints) Status: Chronic - Assessment and Plan (Free Text) Plan: Cont meds Con ttx start Ancef follow up cbc blood and urine C and S protonix carafate.
--- NOTE | 2017-10-12 09:52 | CP.PCM.PN ---
Subjective - Date & Time of Evaluation Date of Evaluation: 10/12/17 Time of Evaluation: 09:50 - Subjective Subjective: Patient was started on Ancef last night. Feels better today Has no fever. Less epigastric pain. Has constipation. Objective - Vital Signs/Intake and Output Vital Signs (last 24 hours): Temp Pulse Resp BP Pulse Ox 97.9 F 80 20 107/55 L 100 10/12/17 08:09 10/12/17 08:24 10/12/17 08:09 10/12/17 08:24 10/12/17 08:09 - Medications Medications: Current Medications Acetaminophen (Tylenol 325mg Tab) 650 mg PO Q6 PRN PRN Reason: Temperature Last Admin: 10/11/17 20:12 Dose: 650 mg Alprazolam (Xanax) 2 mg PO TID PRN PRN Reason: Anxiety Amlodipine Besylate (Norvasc) 10 mg PO DAILY [facility] Last Admin: 10/12/17 08:24 Dose: 10 mg Atorvastatin Calcium (Lipitor) 10 mg PO HS [facility] Last Admin: 10/11/17 21:23 Dose: 10 mg Diphenhydramine HCl (Benadryl) 25 mg PO Q8 PRN PRN Reason: Itching / Pruritus Docusate Sodium (Colace) 100 mg PO BID [facility] Last Admin: 10/12/17 08:23 Dose: 100 mg Enoxaparin Sodium (Lovenox) 40 mg SC DAILY [facility] PRN Reason: Protocol Last Admin: 10/12/17 08:24 Dose: 40 mg Ferrous Sulfate (Feosol) 325 mg PO DAILY [facility] Cefazolin Sodium 1 gm/ Sodium (Chloride) 100 mls @ 100 mls/hr IVPB Q8@0500,1300 ,2100 [facility] PRN Reason: Protocol Last Admin: 10/12/17 04:37 Dose: 100 mls/hr Lactulose (Enulose) 20 gm PO DAILY PRN PRN Reason: Constipation Ondansetron HCl (Zofran Inj) 4 mg IVP Q4 PRN PRN Reason: Nausea/Vomiting Last Admin: 10/11/17 12:45 Dose: 4 mg Oxycodone/Acetaminophen (Percocet 5/325 Mg Tab) 1 tab PO Q4 PRN PRN Reason: Pain, moderate (4-7) Stop: 10/12/17 21:09 Oxycodone/Acetaminophen (Percocet 5/325 Mg Tab) 2 tab PO Q4 PRN PRN Reason: Pain, severe (8-10) Stop: 10/12/17 21:09 Last Admin: 10/10/17 23:07 Dose: 2 tab Sertraline HCl (Zoloft) 50 mg PO [facility] Last Admin: 10/11/17 21:23 Dose: 50 mg Tamsulosin HCl (Flomax) 0.4 mg PO DAILY [facility] Last Admin: 10/12/17 08:23 Dose: 0.4 mg Zolpidem Tartrate (Ambien) 10 mg PO [facility] Last Admin: 10/11/17 22:07 Dose: 10 mg - Labs Labs: 10/12/17 05:20 10/10/17 08:45 - Head Exam Head Exam: NORMAL INSPECTION - Eye Exam Eye Exam: Normal appearance - ENT Exam ENT Exam: Mucous Membranes Moist - Respiratory Exam Respiratory Exam: Clear to Ausculation Bilateral - Cardiovascular Exam Cardiovascular Exam: REGULAR RHYTHM - GI/Abdominal Exam GI & Abdominal Exam: Normal Bowel Sounds - Neurological Exam Neurological Exam: CN II-XII Intact, Oriented x3 - Psychiatric Exam Psychiatric exam: Normal Affect Assessment and Plan (1) Gait abnormality Status: Acute (2) Status post total hip replacement, right Status: Acute (3) Anxiety Status: Chronic (4) Hypertension Status: Chronic (5) Osteoarthritis (arthritis due to wear and tear of joints) Status: Chronic - Assessment and Plan (Free Text) Plan: Cont meds Cn ttx Cont PT blood and urne C and S lactulose
[2017-10-12 12:22] LABS: URINE BILIRUBIN NEGATIVE (NEGATIVE); URINE BLOOD NEGATIVE (NEGATIVE); URINE CLARITY SLIGHTY-CLOUDY (Clear); URINE COLOR AMBER (YELLOW); URINE GLUCOSE (UA) NEG (Normal); URINE LEUKOCYTE ESTERASE NEG Leu/uL (Negative); URINE NITRATE NEGATIVE (NEGATIVE); URINE PROTEIN 30 mg/dL (NEGATIVE)
[2017-10-13] MEDS: ceFAZolin 1 GM in Sodium Chloride 0.9% 100 ML IVPB SCH ×3 (04:29→21:27)
[2017-10-13 06:08] LABS: HEMOGLOBIN 7.9 g/dL (12.0-18.0); MEAN CELL VOLUME 86.4 fl (80.0-94.0); MEAN CORPUSCULAR HEMOGLOBIN 28.7 pg (27.0-31.0); MEAN CORPUSCULAR HGB CONC 33.2 g/dL (33.0-37.0); RBC 2.76 Mil/uL (4.40-5.90); RED CELL DISTRIBUTION WIDTH 13.2 % (11.5-14.5)
[2017-10-13] MEDS ORDERED: Oxycodone/Acetaminophen 5/325 mg Tab PO PRN (09:00)
[2017-10-13] MEDS: Oxycodone/Acetaminophen 5/325 mg Tab PO PRN ×2 (09:09→21:49)
--- NOTE | 2017-10-13 11:32 | CP.PCM.PN ---
Subjective - Date & Time of Evaluation Date of Evaluation: 10/13/17 Time of Evaluation: 11:30 - Subjective Subjective: Noted drop in Hgb from 10 to 7.9 today. Noted some pallor. Has no headaches dizziness or chest pain or SOB. Objective - Vital Signs/Intake and Output Vital Signs (last 24 hours): Temp Pulse Resp BP Pulse Ox 98.9 F 60 20 120/60 99 10/13/17 08:12 10/13/17 08:56 10/13/17 08:12 10/13/17 08:56 10/13/17 08:12 - Medications Medications: Current Medications Acetaminophen (Tylenol 325mg Tab) 650 mg PO Q6 PRN PRN Reason: Temperature Last Admin: 10/11/17 20:12 Dose: 650 mg Alprazolam (Xanax) 2 mg PO TID PRN PRN Reason: Anxiety Last Admin: 10/13/17 10:40 Dose: 2 mg Amlodipine Besylate (Norvasc) 10 mg PO DAILY [facility] Last Admin: 10/13/17 08:56 Dose: 10 mg Atorvastatin Calcium (Lipitor) 10 mg PO HS [facility] Last Admin: 10/12/17 21:25 Dose: 10 mg Diphenhydramine HCl (Benadryl) 25 mg PO Q8 PRN PRN Reason: Itching / Pruritus Docusate Sodium (Colace) 100 mg PO BID [facility] Last Admin: 10/13/17 08:55 Dose: 100 mg Enoxaparin Sodium (Lovenox) 40 mg SC DAILY [facility] PRN Reason: Protocol Last Admin: 10/12/17 08:24 Dose: 40 mg Ferrous Sulfate (Feosol) 325 mg PO DAILY [facility] Last Admin: 10/13/17 08:55 Dose: 325 mg Cefazolin Sodium 1 gm/ Sodium (Chloride) 100 mls @ 100 mls/hr IVPB Q8@0500,1300 ,2100 [facility] PRN Reason: Protocol Last Admin: 10/13/17 04:29 Dose: 100 mls/hr Lactulose (Enulose) 20 gm PO DAILY PRN PRN Reason: Constipation Last Admin: 10/12/17 10:01 Dose: 20 gm Ondansetron HCl (Zofran Inj) 4 mg IVP Q4 PRN PRN Reason: Nausea/Vomiting Last Admin: 10/11/17 12:45 Dose: 4 mg Oxycodone/Acetaminophen (Percocet 5/325 Mg Tab) 1 tab PO Q4 PRN PRN Reason: Pain, moderate (4-7) Stop: 10/16/17 09:01 Oxycodone/Acetaminophen (Percocet 5/325 Mg Tab) 2 tab PO Q6 PRN PRN Reason: Pain, severe (8-10) Stop: 10/16/17 09:02 Last Admin: 10/13/17 09:09 Dose: 2 tab Sertraline HCl (Zoloft) 50 mg PO [facility] Last Admin: 10/12/17 21:25 Dose: Not Given Tamsulosin HCl (Flomax) 0.4 mg PO DAILY [facility] Last Admin: 10/13/17 08:55 Dose: 0.4 mg Zolpidem Tartrate (Ambien) 10 mg PO [facility] Last Admin: 10/12/17 22:22 Dose: 10 mg - Labs Labs: 10/13/17 05:30 10/10/17 08:45 - Head Exam Head Exam: NORMAL INSPECTION - Eye Exam Eye Exam: Normal appearance - ENT Exam ENT Exam: Mucous Membranes Moist - Respiratory Exam Respiratory Exam: Clear to Ausculation Bilateral - Cardiovascular Exam Cardiovascular Exam: REGULAR RHYTHM - GI/Abdominal Exam GI & Abdominal Exam: Normal Bowel Sounds - Neurological Exam Neurological Exam: Awake, Oriented x3 - Psychiatric Exam Psychiatric exam: Normal Mood Assessment and Plan (1) Gait abnormality Status: Acute (2) Status post total hip replacement, right Status: Acute (3) Anxiety Status: Chronic (4) Hypertension Status: Chronic (5) Osteoarthritis (arthritis due to wear and tear of joints) Status: Chronic (6) Postoperative anemia Status: Acute - Assessment and Plan (Free Text) Plan: Cont meds Transfuse 2 packs of RBC Cont tx. Cont PT.
[2017-10-14] MEDS: ceFAZolin 1 GM in Sodium Chloride 0.9% 100 ML IVPB SCH ×3 (06:00→21:13)
[2017-10-14] MEDS: Oxycodone/Acetaminophen 5/325 mg Tab PO PRN ×2 (09:25→14:58)
[2017-10-14 10:37] LABS: BASO # 0.1 K/uL (0.0-0.2); BASO % 0.9 % (0.0-2.0); EOS # 0.3 K/uL (0.0-0.7); EOS % 3.5 % (0.0-4.0); HEMOGLOBIN 10.4 g/dL (12.0-18.0); LYMPH # 1.5 K/uL (1.0-4.3); LYMPH % 18.6 % (20.0-40.0); MEAN CELL VOLUME 84.6 fl (80.0-94.0); MEAN CORPUSCULAR HEMOGLOBIN 29.4 pg (27.0-31.0); MEAN CORPUSCULAR HGB CONC 34.7 g/dL (33.0-37.0); MEAN PLATELET VOLUME 7.9 fl (7.2-11.7); MONO # 0.7 K/uL (0.0-0.8); MONO % 8.8 % (0.0-10.0); NEUT # 5.5 K/uL (1.8-7.0); NEUT % 68.2 % (50.0-75.0); NRBC % 0.1 % (0.0-0.0); RBC 3.55 Mil/uL (4.40-5.90); RED CELL DISTRIBUTION WIDTH 13.7 % (11.5-14.5); WHITE BLOOD COUNT 8.1 K/uL (4.8-10.8)
--- NOTE | 2017-10-14 13:58 | CP.PCM.PN ---
Subjective - Date & Time of Evaluation Date of Evaluation: 10/14/17 Time of Evaluation: 12:30 - Subjective Subjective: Patient states pain is getting better. He says he has more energy since transfusion. Denies CP/SOB/dizziness. Objective - Vital Signs/Intake and Output Vital Signs (last 24 hours): Temp Pulse Resp BP Pulse Ox 97.1 F L 65 20 120/66 99 10/14/17 08:30 10/14/17 09:26 10/14/17 08:30 10/14/17 09:26 10/14/17 08:30 - Medications Medications: Current Medications Acetaminophen (Tylenol 325mg Tab) 650 mg PO Q6 PRN PRN Reason: Temperature Last Admin: 10/11/17 20:12 Dose: 650 mg Alprazolam (Xanax) 2 mg PO TID PRN PRN Reason: Anxiety Last Admin: 10/14/17 00:10 Dose: 2 mg Amlodipine Besylate (Norvasc) 10 mg PO DAILY [facility] Last Admin: 10/14/17 09:26 Dose: 10 mg Atorvastatin Calcium (Lipitor) 10 mg PO HS [facility] Last Admin: 10/13/17 21:27 Dose: 10 mg Diphenhydramine HCl (Benadryl) 25 mg PO Q8 PRN PRN Reason: Itching / Pruritus Docusate Sodium (Colace) 100 mg PO BID [facility] Last Admin: 10/14/17 09:27 Dose: 100 mg Enoxaparin Sodium (Lovenox) 40 mg SC DAILY [facility] PRN Reason: Protocol Last Admin: 10/12/17 08:24 Dose: 40 mg Ferrous Sulfate (Feosol) 325 mg PO DAILY [facility] Last Admin: 10/14/17 09:26 Dose: 325 mg Cefazolin Sodium 1 gm/ Sodium (Chloride) 100 mls @ 100 mls/hr IVPB Q8@0500,1300 ,2100 [facility] PRN Reason: Protocol Last Admin: 10/14/17 12:59 Dose: 100 mls/hr Lactulose (Enulose) 20 gm PO DAILY PRN PRN Reason: Constipation Last Admin: 10/14/17 04:44 Dose: 20 gm Ondansetron HCl (Zofran Inj) 4 mg IVP Q4 PRN PRN Reason: Nausea/Vomiting Last Admin: 10/11/17 12:45 Dose: 4 mg Oxycodone/Acetaminophen (Percocet 5/325 Mg Tab) 1 tab PO Q4 PRN PRN Reason: Pain, moderate (4-7) Stop: 10/16/17 09:01 Oxycodone/Acetaminophen (Percocet 5/325 Mg Tab) 2 tab PO Q6 PRN PRN Reason: Pain, severe (8-10) Stop: 10/16/17 09:02 Last Admin: 10/14/17 09:25 Dose: 2 tab Sertraline HCl (Zoloft) 50 mg PO [facility] Last Admin: 10/13/17 21:27 Dose: Not Given Tamsulosin HCl (Flomax) 0.4 mg PO DAILY [facility] Last Admin: 10/14/17 09:27 Dose: 0.4 mg Zolpidem Tartrate (Ambien) 10 mg PO [facility] Last Admin: 10/13/17 21:26 Dose: 10 mg - Labs Labs: 10/14/17 10:20 10/10/17 08:45 - Extremities Exam Additional comments: Right thigh: noted swelling to thigh. Pt with kobe to knee and distal leg causing indentation of skin, removed. Favio stockings intact. Incision intact, dry , no erythema, dressing changed. +ROM ankle/toes sensation intact calves soft NT neg homans Assessment and Plan - Assessment and Plan (Free Text) Assessment: POD#6 s/p right THR -PT/OT ice to right thigh dressing changes labs in am d/w Dr. Briceno, agrees with above
[2017-10-15] MEDS: Oxycodone/Acetaminophen 5/325 mg Tab PO PRN ×4 (03:20→22:29)
[2017-10-15] MEDS: ceFAZolin 1 GM in Sodium Chloride 0.9% 100 ML IVPB SCH ×3 (05:33→21:32)
[2017-10-15 08:37] LABS: HEMOGLOBIN 10.1 g/dL (12.0-18.0); MEAN CELL VOLUME 85.3 fl (80.0-94.0); MEAN CORPUSCULAR HEMOGLOBIN 29.5 pg (27.0-31.0); MEAN CORPUSCULAR HGB CONC 34.6 g/dL (33.0-37.0); RBC 3.44 Mil/uL (4.40-5.90); RED CELL DISTRIBUTION WIDTH 13.5 % (11.5-14.5); WHITE BLOOD COUNT 7.8 K/uL (4.8-10.8)
[2017-10-15 08:51] LABS: BLOOD UREA NITROGEN 13 mg/dl (9-20); CALCIUM 8.7 mg/dL (8.4-10.2); GFR AFRICAN-AMERICAN > 60; GFR NON-AFRICAN AMERICAN > 60
[2017-10-15] MEDS: Enoxaparin 40 mg Syringe SC SCH (08:52)
[2017-10-16] MEDS: ceFAZolin 1 GM in Sodium Chloride 0.9% 100 ML IVPB SCH (04:43)
[2017-10-16] MEDS: Oxycodone/Acetaminophen 5/325 mg Tab PO PRN ×3 (08:40→21:08)
[2017-10-16] MEDS: Enoxaparin 40 mg Syringe SC SCH (08:42)
[2017-10-16] MEDS: Olopatadine 0.1% Opht SOLN OU SCH ×2 (11:44→17:45)
[2017-10-16] MEDS ORDERED: Oxycodone/Acetaminophen 5/325 mg Tab PO PRN (12:05)
--- NOTE | 2017-10-16 14:34 | CP.PCM.PN ---
Subjective - Date & Time of Evaluation Date of Evaluation: 10/16/17 Time of Evaluation: 09:00 - Subjective Subjective: Patient seen and examined at bedside with attending-Dr. Lucas. Awake, alert, reports irritation and redness of eyes bilaterally, denies pruritus or discharge. Denies chest pain, SOB or weakness. Tolerating PT/OT. Objective - Vital Signs/Intake and Output Vital Signs (last 24 hours): Temp Pulse Resp BP Pulse Ox 98.1 F 77 20 114/63 98 10/16/17 09:00 10/16/17 09:00 10/16/17 09:00 10/16/17 09:00 10/16/17 09:00 - Medications Medications: Current Medications Acetaminophen (Tylenol 325mg Tab) 650 mg PO Q6 PRN PRN Reason: Temperature Last Admin: 10/11/17 20:12 Dose: 650 mg Alprazolam (Xanax) 2 mg PO TID PRN PRN Reason: Anxiety Last Admin: 10/14/17 21:12 Dose: 2 mg Amlodipine Besylate (Norvasc) 10 mg PO DAILY [facility] Last Admin: 10/16/17 08:41 Dose: 10 mg Atorvastatin Calcium (Lipitor) 10 mg PO HS [facility] Last Admin: 10/15/17 21:39 Dose: 10 mg Diphenhydramine HCl (Benadryl) 25 mg PO Q8 PRN PRN Reason: Itching / Pruritus Docusate Sodium (Colace) 100 mg PO BID [facility] Last Admin: 10/16/17 08:41 Dose: 100 mg Enoxaparin Sodium (Lovenox) 40 mg SC DAILY [facility] PRN Reason: Protocol Last Admin: 10/16/17 08:42 Dose: 40 mg Ferrous Sulfate (Feosol) 325 mg PO DAILY [facility] Last Admin: 10/16/17 08:42 Dose: 325 mg Lactulose (Enulose) 20 gm PO DAILY PRN PRN Reason: Constipation Last Admin: 10/16/17 08:42 Dose: 20 gm Olopatadine HCl (Patanol 0.1% Opht Soln) 1 drop OU BID [facility] Last Admin: 10/16/17 11:44 Dose: 1 u Ondansetron HCl (Zofran Inj) 4 mg IVP Q4 PRN PRN Reason: Nausea/Vomiting Last Admin: 10/11/17 12:45 Dose: 4 mg Oxycodone/Acetaminophen (Percocet 5/325 Mg Tab) 2 tab PO Q4 PRN PRN Reason: Pain, moderate (4-7) Stop: 10/19/17 09:27 Oxycodone/Acetaminophen (Percocet 5/325 Mg Tab) 1 tab PO Q4 PRN PRN Reason: Pain, moderate (4-7) Stop: 10/19/17 12:06 Sertraline HCl (Zoloft) [address] [facility] Last Admin: 10/15/17 22:31 Dose: Not Given Tamsulosin HCl (Flomax) 0.4 mg PO DAILY [facility] Last Admin: 10/16/17 08:43 Dose: 0.4 mg Zolpidem Tartrate (Ambien) [address] [facility] Last Admin: 10/15/17 23:04 Dose: 10 mg - Labs Labs: 10/15/17 08:22 10/15/17 08:22 - Constitutional Appears: No Acute Distress - Head Exam Head Exam: ATRAUMATIC, NORMOCEPHALIC - Eye Exam Eye Exam: EOMI, Periorbital swelling (minimal with mild erythema, no discharge, no tenderness) - ENT Exam ENT Exam: Mucous Membranes Moist - Neck Exam Neck Exam: Full ROM - Respiratory Exam Respiratory Exam: NORMAL BREATHING PATTERN - Cardiovascular Exam Cardiovascular Exam: REGULAR RHYTHM, +S1, +S2 - GI/Abdominal Exam GI & Abdominal Exam: Soft, Normal Bowel Sounds. absent: Tenderness - Extremities Exam Extremities Exam: Full ROM. absent: Pedal Edema - Neurological Exam Neurological Exam: Abnormal Gait (using walker to ambulate), Alert, Awake, CN II -XII Intact, Oriented x3 - Psychiatric Exam Psychiatric exam: Normal Affect, Normal Mood - Skin Skin Exam: Dry, Normal Color, Warm Assessment and Plan (1) Gait abnormality Status: Acute (2) Postoperative anemia Assessment & Plan: (today H/H stable at 10.1/29.3) Status: Acute (3) Status post total hip replacement, right Status: Acute (4) Anxiety Status: Chronic (5) Hypertension Status: Chronic (6) Osteoarthritis (arthritis due to wear and tear of joints) Status: Chronic - Assessment and Plan (Free Text) Plan: -f/u CBC -continue pain management -continue encouraging ambulation, PT/OT -antihistamine eye drops -continue home medications -Lovenox 40mg SC QD for DVT prophylaxis
[2017-10-17 07:07] LABS: BASO # 0.1 K/uL (0.0-0.2); BASO % 0.7 % (0.0-2.0); EOS # 0.5 K/uL (0.0-0.7); EOS % 6.9 % (0.0-4.0); HEMOGLOBIN 9.6 g/dL (12.0-18.0); LYMPH # 1.6 K/uL (1.0-4.3); LYMPH % 20.9 % (20.0-40.0); MEAN CELL VOLUME 86.8 fl (80.0-94.0); MEAN CORPUSCULAR HEMOGLOBIN 28.3 pg (27.0-31.0); MEAN CORPUSCULAR HGB CONC 32.7 g/dL (33.0-37.0); MEAN PLATELET VOLUME 7.3 fl (7.2-11.7); MONO # 0.7 K/uL (0.0-0.8); MONO % 8.4 % (0.0-10.0); NEUT # 4.9 K/uL (1.8-7.0); NEUT % 63.1 % (50.0-75.0); NRBC % 0.1 % (0.0-0.0); RBC 3.39 Mil/uL (4.40-5.90); RED CELL DISTRIBUTION WIDTH 13.7 % (11.5-14.5); WHITE BLOOD COUNT 7.8 K/uL (4.8-10.8)
[2017-10-17] MEDS: Enoxaparin 40 mg Syringe SC SCH (08:43)
[2017-10-17] MEDS: Oxycodone/Acetaminophen 5/325 mg Tab PO PRN ×3 (08:43→21:56)
[2017-10-17] MEDS: Olopatadine 0.1% Opht SOLN OU SCH ×2 (08:50→16:51)
--- NOTE | 2017-10-17 21:00 | CP.PCM.CON ---
History of Present Illness - History of Present Illness History of Present Illness: patient is a 62 year old male admitted with right hip replacement to TCU secondary to osteoarthritis. with PMh of hyperlipidemia and arthritis Review of Systems - Musculoskeletal Musculoskeletal: Abnormal Gait, Muscle Weakness Past Patient History - Infectious Disease Hx of Infectious Diseases: None - Tetanus Immunizations Tetanus Immunization: Unknown - Past Medical History & Family History Past Medical History?: Yes - Past Social History Smoking Status: Never Smoked - CARDIAC Hx Hypercholesterolemia: Yes Hx Hypertension: Yes - PULMONARY Hx Respiratory Disorders: No - NEUROLOGICAL Hx Neurological Disorder: No - HEENT Hx HEENT Problems: Yes Hx Cataracts: Yes Other/Comment: cateract extraction with implant. - RENAL Hx Chronic Kidney Disease: No - ENDOCRINE/METABOLIC Hx Endocrine Disorders: No - HEMATOLOGICAL/ONCOLOGICAL Hx AIDS: No Hx Human Immunodeficiency Virus (HIV): No - INTEGUMENTARY Hx Dermatological Problems: No - MUSCULOSKELETAL/RHEUMATOLOGICAL Hx Falls: No - GASTROINTESTINAL Hx Gastrointestinal Disorders: No - GENITOURINARY/GYNECOLOGICAL Hx Genitourinary Disorders: No - PSYCHIATRIC Hx Psychophysiologic Disorder: Yes Hx Anxiety: Yes (xanax3) Hx Substance Use: No - SURGICAL HISTORY Hx Surgeries: Yes Hx Cataract Extraction: Yes (b/l with implant) Hx Joint Replacement: Yes (TKR Left 2011, TKR Right 10/2015) Hx Orthopedic Surgery: Yes (left knee replaced,[id number]) Other/Comment: Aspiration Arthrogram left knee 08/09/14 - ANESTHESIA Hx Anesthesia: Yes Hx Anesthesia Reactions: No Hx Malignant Hyperthermia: No Meds Allergies/Adverse Reactions: Allergies Allergy/AdvReac Type Severity Reaction Status Date / Time No Known Allergies Allergy Verified 10/13/17 17:04 - Medications Medications: Current Medications Acetaminophen (Tylenol 325mg Tab) 650 mg PO Q6 PRN PRN Reason: Temperature Last Admin: 10/11/17 20:12 Dose: 650 mg Alprazolam (Xanax) 2 mg PO TID PRN PRN Reason: Anxiety Last Admin: 10/17/17 16:51 Dose: 2 mg Amlodipine Besylate (Norvasc) 10 mg PO DAILY [facility] Last Admin: 10/17/17 08:42 Dose: 10 mg Atorvastatin Calcium (Lipitor) 10 mg PO HS [facility] Last Admin: 10/16/17 21:07 Dose: 10 mg Diphenhydramine HCl (Benadryl) 25 mg PO Q8 PRN PRN Reason: Itching / Pruritus Docusate Sodium (Colace) 100 mg PO BID [facility] Last Admin: 10/17/17 16:51 Dose: 100 mg Enoxaparin Sodium (Lovenox) 40 mg SC DAILY [facility] PRN Reason: Protocol Last Admin: 10/17/17 08:43 Dose: 40 mg Ferrous Sulfate (Feosol) 325 mg PO DAILY [facility] Last Admin: 10/17/17 08:42 Dose: 325 mg Lactulose (Enulose) 20 gm PO DAILY PRN PRN Reason: Constipation Last Admin: 10/16/17 08:42 Dose: 20 gm Olopatadine HCl (Patanol 0.1% Opht Soln) 1 drop OU BID [facility] Last Admin: 10/17/17 16:51 Dose: 1 u Ondansetron HCl (Zofran Inj) 4 mg IVP Q4 PRN PRN Reason: Nausea/Vomiting Last Admin: 10/11/17 12:45 Dose: 4 mg Oxycodone/Acetaminophen (Percocet 5/325 Mg Tab) 2 tab PO Q4 PRN PRN Reason: Pain, moderate (4-7) Stop: 10/19/17 09:27 Last Admin: 10/17/17 14:54 Dose: 2 tab Oxycodone/Acetaminophen (Percocet 5/325 Mg Tab) 1 tab PO Q4 PRN PRN Reason: Pain, moderate (4-7) Stop: 10/19/17 12:06 Sertraline HCl (Zoloft) 50 mg PO [facility] Last Admin: 10/16/17 21:07 Dose: 50 mg Tamsulosin HCl (Flomax) 0.4 mg PO DAILY [facility] Last Admin: 10/17/17 08:42 Dose: 0.4 mg Zolpidem Tartrate (Ambien) 10 mg PO [facility] Last Admin: 10/16/17 23:59 Dose: 10 mg Physical Exam - Head Exam Head Exam: ATRAUMATIC, NORMAL INSPECTION, NORMOCEPHALIC - Eye Exam Eye Exam: EOMI, Normal appearance Pupil Exam: NORMAL ACCOMODATION, PERRL - ENT Exam ENT Exam: Mucous Membranes Moist, Normal Exam - Neck Exam Neck exam: Positive for: Normal Inspection - Respiratory Exam Respiratory Exam: NORMAL BREATHING PATTERN - Cardiovascular Exam Cardiovascular Exam: REGULAR RHYTHM - GI/Abdominal Exam GI & Abdominal Exam: Normal Bowel Sounds - Rectal Exam Rectal Exam: NORMAL INSPECTION - Exam External exam: NORMAL EXTERNAL EXAM - Extremities Exam Extremities exam: Positive for: normal inspection - Back Exam Back exam: NORMAL INSPECTION - Neurological Exam Neurological exam: Alert, CN II-XII Intact - Psychiatric Exam Psychiatric exam: Normal Affect, Normal Mood - Skin Skin Exam: Normal Color Results - Vital Signs Recent Vital Signs: Last Vital Signs Temp 97.9 F 10/17/17 19:50 Pulse 69 10/17/17 19:50 Resp 20 10/17/17 19:50 BP 116/65 10/17/17 19:50 Pulse Ox 100 10/17/17 19:50 - Labs Result Diagrams: 10/17/17 05:30 10/15/17 08:22 Labs: Laboratory Results - last 24 hr 10/17/17 05:30 WBC 7.8 RBC 3.39 L Hgb 9.6 L Hct 29.4 L MCV 86.8 MCH 28.3 MCHC 32.7 L RDW 13.7 Plt Count 352 MPV 7.3 Neut % (Auto) 63.1 Lymph % (Auto) 20.9 Glenn % (Auto) 8.4 Eos % (Auto) 6.9 H Baso % (Auto) 0.7 Neut # 4.9 Lymph # 1.6 Glenn # 0.7 Eos # 0.5 Baso # 0.1 Assessment & Plan (1) Gait abnormality Assessment and Plan: right hip replacement secondary to OA. plan for physical, occupational therapy, for range of motion, strengthening, transfers and gait training. Prec PWB and hip precautions monitor skin and pain. Status: Acute (2) Postoperative anemia Status: Acute (3) Abnormal EKG Status: Acute (4) Cellulitis of left knee Status: Acute (5) Cellulitis of right knee Status: Acute (6) DVT prophylaxis Status: Acute (7) Fever Status: Acute (8) Gait difficulty Status: Acute
[2017-10-18] MEDS: Enoxaparin 40 mg Syringe SC SCH (09:08)
[2017-10-18] MEDS: Olopatadine 0.1% Opht SOLN OU SCH ×2 (09:08→16:13)
[2017-10-18] MEDS: Oxycodone/Acetaminophen 5/325 mg Tab PO PRN ×2 (09:21→21:15)
--- NOTE | 2017-10-18 14:54 | CP.PCM.PN ---
Subjective - Date & Time of Evaluation Date of Evaluation: 10/17/17 Time of Evaluation: 10:20 - Subjective Subjective: patient remains stbale Has no dizziness Has minimal pain on the op site Objective - Vital Signs/Intake and Output Vital Signs (last 24 hours): Temp Pulse Resp BP Pulse Ox 98.1 F 71 20 112/59 L 98 10/18/17 08:06 10/18/17 09:09 10/18/17 08:06 10/18/17 09:09 10/18/17 08:06 - Medications Medications: Current Medications Acetaminophen (Tylenol 325mg Tab) 650 mg PO Q6 PRN PRN Reason: Temperature Last Admin: 10/11/17 20:12 Dose: 650 mg Amlodipine Besylate (Norvasc) 10 mg PO DAILY [facility] Last Admin: 10/18/17 09:09 Dose: 10 mg Atorvastatin Calcium (Lipitor) 10 mg PO HS [facility] Last Admin: 10/18/17 00:26 Dose: 10 mg Diphenhydramine HCl (Benadryl) 25 mg PO Q8 PRN PRN Reason: Itching / Pruritus Docusate Sodium (Colace) 100 mg PO BID [facility] Last Admin: 10/18/17 09:07 Dose: 100 mg Enoxaparin Sodium (Lovenox) 40 mg SC DAILY [facility] PRN Reason: Protocol Last Admin: 10/18/17 09:08 Dose: 40 mg Ferrous Sulfate (Feosol) 325 mg PO DAILY [facility] Last Admin: 10/18/17 09:07 Dose: 325 mg Lactulose (Enulose) 20 gm PO DAILY PRN PRN Reason: Constipation Last Admin: 10/16/17 08:42 Dose: 20 gm Olopatadine HCl (Patanol 0.1% Opht Soln) 1 drop OU BID [facility] Last Admin: 10/18/17 09:08 Dose: 1 u Ondansetron HCl (Zofran Inj) 4 mg IVP Q4 PRN PRN Reason: Nausea/Vomiting Last Admin: 10/11/17 12:45 Dose: 4 mg Oxycodone/Acetaminophen (Percocet 5/325 Mg Tab) 2 tab PO Q4 PRN PRN Reason: Pain, moderate (4-7) Stop: 10/19/17 09:27 Last Admin: 10/18/17 09:21 Dose: 2 tab Oxycodone/Acetaminophen (Percocet 5/325 Mg Tab) 1 tab PO Q4 PRN PRN Reason: Pain, moderate (4-7) Stop: 10/19/17 12:06 Sertraline HCl (Zoloft) 50 mg PO [facility] Last Admin: 10/18/17 00:49 Dose: Not Given Tamsulosin HCl (Flomax) 0.4 mg PO DAILY [facility] Last Admin: 10/18/17 09:07 Dose: 0.4 mg Zolpidem Tartrate (Ambien) 10 mg PO [facility] Last Admin: 10/17/17 22:45 Dose: 10 mg - Labs Labs: 10/17/17 05:30 10/15/17 08:22 - Head Exam Head Exam: NORMAL INSPECTION - Eye Exam Eye Exam: Normal appearance - ENT Exam ENT Exam: Mucous Membranes Moist - Respiratory Exam Respiratory Exam: Clear to Ausculation Bilateral - Cardiovascular Exam Cardiovascular Exam: REGULAR RHYTHM - GI/Abdominal Exam GI & Abdominal Exam: Normal Bowel Sounds Assessment and Plan (1) Gait abnormality Status: Acute (2) Status post total hip replacement, right Status: Acute (3) Anxiety Status: Chronic (4) Hypertension Status: Chronic (5) Osteoarthritis (arthritis due to wear and tear of joints) Status: Chronic (6) Postoperative anemia Status: Acute - Assessment and Plan (Free Text) Plan: Cont meds Cont tx Cont PT Pain meds.
--- NOTE | 2017-10-18 14:55 | CP.PCM.PN ---
Subjective - Date & Time of Evaluation Date of Evaluation: 10/18/17 Time of Evaluation: 14:55 - Subjective Subjective: Patient remains stable. Objective - Vital Signs/Intake and Output Vital Signs (last 24 hours): Temp Pulse Resp BP Pulse Ox 98.1 F 71 20 112/59 L 98 10/18/17 08:06 10/18/17 09:09 10/18/17 08:06 10/18/17 09:09 10/18/17 08:06 - Medications Medications: Current Medications Acetaminophen (Tylenol 325mg Tab) 650 mg PO Q6 PRN PRN Reason: Temperature Last Admin: 10/11/17 20:12 Dose: 650 mg Amlodipine Besylate (Norvasc) 10 mg PO DAILY [facility] Last Admin: 10/18/17 09:09 Dose: 10 mg Atorvastatin Calcium (Lipitor) 10 mg PO HS [facility] Last Admin: 10/18/17 00:26 Dose: 10 mg Diphenhydramine HCl (Benadryl) 25 mg PO Q8 PRN PRN Reason: Itching / Pruritus Docusate Sodium (Colace) 100 mg PO BID [facility] Last Admin: 10/18/17 09:07 Dose: 100 mg Enoxaparin Sodium (Lovenox) 40 mg SC DAILY [facility] PRN Reason: Protocol Last Admin: 10/18/17 09:08 Dose: 40 mg Ferrous Sulfate (Feosol) 325 mg PO DAILY [facility] Last Admin: 10/18/17 09:07 Dose: 325 mg Lactulose (Enulose) 20 gm PO DAILY PRN PRN Reason: Constipation Last Admin: 10/16/17 08:42 Dose: 20 gm Olopatadine HCl (Patanol 0.1% Opht Soln) 1 drop OU BID [facility] Last Admin: 10/18/17 09:08 Dose: 1 u Ondansetron HCl (Zofran Inj) 4 mg IVP Q4 PRN PRN Reason: Nausea/Vomiting Last Admin: 10/11/17 12:45 Dose: 4 mg Oxycodone/Acetaminophen (Percocet 5/325 Mg Tab) 2 tab PO Q4 PRN PRN Reason: Pain, moderate (4-7) Stop: 10/19/17 09:27 Last Admin: 10/18/17 09:21 Dose: 2 tab Oxycodone/Acetaminophen (Percocet 5/325 Mg Tab) 1 tab PO Q4 PRN PRN Reason: Pain, moderate (4-7) Stop: 10/19/17 12:06 Sertraline HCl (Zoloft) 50 mg PO [facility] Last Admin: 10/18/17 00:49 Dose: Not Given Tamsulosin HCl (Flomax) 0.4 mg PO DAILY [facility] Last Admin: 10/18/17 09:07 Dose: 0.4 mg Zolpidem Tartrate (Ambien) 10 mg PO [facility] Last Admin: 10/17/17 22:45 Dose: 10 mg - Labs Labs: 10/17/17 05:30 10/15/17 08:22 Assessment and Plan (1) Gait abnormality Status: Acute (2) Status post total hip replacement, right Status: Acute (3) Anxiety Status: Chronic (4) Hypertension Status: Chronic (5) Osteoarthritis (arthritis due to wear and tear of joints) Status: Chronic (6) Postoperative anemia Status: Acute
[2017-10-19] MEDS: Enoxaparin 40 mg Syringe SC SCH (08:28)
[2017-10-19] MEDS: Olopatadine 0.1% Opht SOLN OU SCH ×2 (08:29→16:59)
[2017-10-19] MEDS: Oxycodone/Acetaminophen 5/325 mg Tab PO PRN ×3 (08:31→22:00)
[2017-10-19] MEDS ORDERED: guaiFENesin DM 200 mg-20 mg/10 ml UD PO PRN (08:58)
--- NOTE | 2017-10-19 10:57 | CP.PCM.PN ---
Subjective - Date & Time of Evaluation Date of Evaluation: 10/19/17 Time of Evaluation: 10:57 - Subjective Subjective: Patient states he is feeling better. Pain in hip is controlled. Denies numbness/ tingling/CP/SOb/dizziness. Objective - Vital Signs/Intake and Output Vital Signs (last 24 hours): Temp Pulse Resp BP Pulse Ox 98.1 F 67 20 153/56 H 99 10/19/17 08:09 10/19/17 08:29 10/19/17 08:09 10/19/17 08:29 10/19/17 08:09 - Medications Medications: Current Medications Acetaminophen (Tylenol 325mg Tab) 650 mg PO Q6 PRN PRN Reason: Temperature Last Admin: 10/11/17 20:12 Dose: 650 mg Alprazolam (Xanax) 2 mg PO TID PRN PRN Reason: Anxiety Amlodipine Besylate (Norvasc) 10 mg PO DAILY [facility] Last Admin: 10/19/17 08:29 Dose: 10 mg Atorvastatin Calcium (Lipitor) 10 mg PO HS [facility] Last Admin: 10/18/17 21:14 Dose: 10 mg Diphenhydramine HCl (Benadryl) 25 mg PO Q8 PRN PRN Reason: Itching / Pruritus Docusate Sodium (Colace) 100 mg PO BID [facility] Last Admin: 10/19/17 08:28 Dose: 100 mg Enoxaparin Sodium (Lovenox) 40 mg SC DAILY [facility] PRN Reason: Protocol Last Admin: 10/19/17 08:28 Dose: 40 mg Ferrous Sulfate (Feosol) 325 mg PO DAILY [facility] Last Admin: 10/19/17 08:28 Dose: 325 mg Guaifenesin/Dextromethorphan (Robitussin Dm) 10 ml PO Q6 PRN PRN Reason: Cough Cefazolin Sodium 2 gm/ Sodium (Chloride) 100 mls @ 100 mls/hr IVPB Q8@0500,1300 ,2100 [facility] PRN Reason: Protocol Lactulose (Enulose) 20 gm PO DAILY PRN PRN Reason: Constipation Last Admin: 10/16/17 08:42 Dose: 20 gm Olopatadine HCl (Patanol 0.1% Opht Soln) 1 drop OU BID [facility] Last Admin: 10/19/17 08:29 Dose: 1 u Ondansetron HCl (Zofran Inj) 4 mg IVP Q4 PRN PRN Reason: Nausea/Vomiting Last Admin: 10/11/17 12:45 Dose: 4 mg Oxycodone/Acetaminophen (Percocet 5/325 Mg Tab) 1 tab PO Q4 PRN PRN Reason: Pain, moderate (4-7) Stop: 10/19/17 12:06 Sertraline HCl (Zoloft) 50 mg PO HS [facility] Last Admin: 10/18/17 22:09 Dose: Not Given Tamsulosin HCl (Flomax) 0.4 mg PO DAILY [facility] Last Admin: 10/19/17 08:28 Dose: 0.4 mg Zolpidem Tartrate (Ambien) 10 mg PO HS [facility] Last Admin: 10/18/17 21:57 Dose: 10 mg - Labs Labs: 10/17/17 05:30 10/15/17 08:22 - Extremities Exam Additional comments: Generalized swelling is improving. small area of swelling at distal part of incision with mild erythema noted. no drainage. +ROm ankle/toes, sensation itnact calves soft NT neg homans Assessment and Plan (1) Status post total hip replacement, right Assessment & Plan: ancef as precaution, continue keflex as outpt until swelling and erythema resolved PT/OT VTE proph d/w Dr. Briceno, agrees with above Status: Acute
[2017-10-19] MEDS: ceFAZolin IV 2 gm in Dextrose 2 GM/50 ML BAG IVPB SCH ×2 (12:51→21:30)
--- NOTE | 2017-10-19 19:40 | CP.PCM.PN ---
Subjective - Date & Time of Evaluation Date of Evaluation: 10/18/17 Time of Evaluation: 13:00 - Subjective Subjective: patient is feeling fine at present Objective - Vital Signs/Intake and Output Vital Signs (last 24 hours): Temp Pulse Resp BP Pulse Ox 98.4 F 71 20 106/61 99 10/19/17 17:04 10/19/17 17:04 10/19/17 17:04 10/19/17 17:04 10/19/17 17:04 - Medications Medications: Current Medications Acetaminophen (Tylenol 325mg Tab) 650 mg PO Q6 PRN PRN Reason: Temperature Last Admin: 10/11/17 20:12 Dose: 650 mg Alprazolam (Xanax) 2 mg PO TID PRN PRN Reason: Anxiety Amlodipine Besylate (Norvasc) 10 mg PO DAILY [facility] Last Admin: 10/19/17 08:29 Dose: 10 mg Atorvastatin Calcium (Lipitor) 10 mg PO HS [facility] Last Admin: 10/18/17 21:14 Dose: 10 mg Diphenhydramine HCl (Benadryl) 25 mg PO Q8 PRN PRN Reason: Itching / Pruritus Docusate Sodium (Colace) 100 mg PO BID [facility] Last Admin: 10/19/17 16:59 Dose: 100 mg Enoxaparin Sodium (Lovenox) 40 mg SC DAILY [facility] PRN Reason: Protocol Last Admin: 10/19/17 08:28 Dose: 40 mg Ferrous Sulfate (Feosol) 325 mg PO DAILY [facility] Last Admin: 10/19/17 08:28 Dose: 325 mg Guaifenesin/Dextromethorphan (Robitussin Dm) 10 ml PO Q6 PRN PRN Reason: Cough Last Admin: 10/19/17 12:52 Dose: 10 ml Cefazolin Sodium/Dextrose (Ancef Iv 2 Gm Duplex) 2 gm in 50 mls @ 50 mls/hr IVPB Q8@0500,1300,2100 [facility] PRN Reason: Protocol Last Admin: 10/19/17 12:51 Dose: 50 mls/hr Lactulose (Enulose) 20 gm PO DAILY PRN PRN Reason: Constipation Last Admin: 10/16/17 08:42 Dose: 20 gm Olopatadine HCl (Patanol 0.1% Opht Soln) 1 drop OU BID [facility] Last Admin: 10/19/17 16:59 Dose: 1 u Ondansetron HCl (Zofran Inj) 4 mg IVP Q4 PRN PRN Reason: Nausea/Vomiting Last Admin: 10/11/17 12:45 Dose: 4 mg Oxycodone/Acetaminophen (Percocet 5/325 Mg Tab) 2 tab PO Q4 PRN PRN Reason: Pain, severe (8-10) Stop: 10/22/17 16:00 Sertraline HCl (Zoloft) 50 mg PO [facility] Last Admin: 10/18/17 22:09 Dose: Not Given Tamsulosin HCl (Flomax) 0.4 mg PO DAILY [facility] Last Admin: 10/19/17 08:28 Dose: 0.4 mg Zolpidem Tartrate (Ambien) 10 mg PO [facility] Last Admin: 10/18/17 21:57 Dose: 10 mg - Labs Labs: 10/17/17 05:30 10/15/17 08:22 - Head Exam Head Exam: ATRAUMATIC, NORMAL INSPECTION, NORMOCEPHALIC - Eye Exam Eye Exam: EOMI, Normal appearance Pupil Exam: NORMAL ACCOMODATION, PERRL - ENT Exam ENT Exam: Mucous Membranes Moist - Neck Exam Neck Exam: Normal Inspection - Respiratory Exam Respiratory Exam: Clear to Ausculation Bilateral - Cardiovascular Exam Cardiovascular Exam: REGULAR RHYTHM - GI/Abdominal Exam GI & Abdominal Exam: Soft - Rectal Exam Rectal Exam: NORMAL INSPECTION - Exam External exam: NORMAL EXTERNAL EXAM - Extremities Exam Extremities Exam: Normal Inspection - Back Exam Back Exam: NORMAL INSPECTION - Neurological Exam Neurological Exam: Alert, Awake Neuro motor strength exam: Left Upper Extremity: 4, Right Upper Extremity: 4, Left Lower Extremity: 4, Right Lower Extremity: 3 - Psychiatric Exam Psychiatric exam: Normal Affect, Normal Mood - Skin Skin Exam: Normal Color Assessment and Plan (1) Gait abnormality Assessment & Plan: right hip surgery, plan to continue with physical, occupational range of motion , strengthening transfers and gait training Status: Acute (2) Postoperative anemia Status: Acute (3) Abnormal EKG Status: Acute (4) Cellulitis of left knee Status: Acute (5) Cellulitis of right knee Status: Acute (6) DVT prophylaxis Status: Acute (7) Fever Status: Acute (8) Gait difficulty Status: Acute
[2017-10-19 21:36] VITALS: TEMP 97.9; O2SAT 98
[2017-10-20] MEDS: ceFAZolin IV 2 gm in Dextrose 2 GM/50 ML BAG IVPB SCH (05:13)
--- NOTE | 2017-10-20 08:06 | CP.PCM.PN ---
Subjective - Date & Time of Evaluation Date of Evaluation: 10/20/17 Time of Evaluation: 15:08 - Subjective Subjective: Patient states he is doing well. Little pain. Objective - Vital Signs/Intake and Output Vital Signs (last 24 hours): Temp Pulse Resp BP Pulse Ox 97.9 F 68 20 107/54 L 98 10/19/17 21:35 10/19/17 21:35 10/19/17 21:35 10/19/17 21:35 10/19/17 21:35 - Medications Medications: Current Medications Acetaminophen (Tylenol 325mg Tab) 650 mg PO Q6 PRN PRN Reason: Temperature Last Admin: 10/11/17 20:12 Dose: 650 mg Alprazolam (Xanax) 2 mg PO TID PRN PRN Reason: Anxiety Last Admin: 10/19/17 21:33 Dose: 2 mg Amlodipine Besylate (Norvasc) 10 mg PO DAILY [facility] Last Admin: 10/19/17 08:29 Dose: 10 mg Atorvastatin Calcium (Lipitor) 10 mg PO HS [facility] Last Admin: 10/19/17 21:31 Dose: 10 mg Diphenhydramine HCl (Benadryl) 25 mg PO Q8 PRN PRN Reason: Itching / Pruritus Docusate Sodium (Colace) 100 mg PO BID [facility] Last Admin: 10/19/17 16:59 Dose: 100 mg Enoxaparin Sodium (Lovenox) 40 mg SC DAILY [facility] PRN Reason: Protocol Last Admin: 10/19/17 08:28 Dose: 40 mg Ferrous Sulfate (Feosol) 325 mg PO DAILY [facility] Last Admin: 10/19/17 08:28 Dose: 325 mg Guaifenesin/Dextromethorphan (Robitussin Dm) 10 ml PO Q6 PRN PRN Reason: Cough Last Admin: 10/19/17 12:52 Dose: 10 ml Cefazolin Sodium/Dextrose (Ancef Iv 2 Gm Duplex) 2 gm in 50 mls @ 50 mls/hr IVPB Q8@0500,1300,2100 [facility] PRN Reason: Protocol Last Admin: 10/20/17 05:13 Dose: 50 mls/hr Lactulose (Enulose) 20 gm PO DAILY PRN PRN Reason: Constipation Last Admin: 10/16/17 08:42 Dose: 20 gm Olopatadine HCl (Patanol 0.1% Opht Soln) 1 drop OU BID [facility] Last Admin: 10/19/17 16:59 Dose: 1 u Ondansetron HCl (Zofran Inj) 4 mg IVP Q4 PRN PRN Reason: Nausea/Vomiting Last Admin: 10/11/17 12:45 Dose: 4 mg Oxycodone/Acetaminophen (Percocet 5/325 Mg Tab) 2 tab PO Q4 PRN PRN Reason: Pain, severe (8-10) Stop: 10/22/17 16:00 Last Admin: 10/19/17 22:00 Dose: 2 tab Sertraline HCl (Zoloft) 50 mg PO HS [facility] Last Admin: 10/19/17 21:31 Dose: 50 mg Tamsulosin HCl (Flomax) 0.4 mg PO DAILY [facility] Last Admin: 10/19/17 08:28 Dose: 0.4 mg Zolpidem Tartrate (Ambien) 10 mg PO HS [facility] Last Admin: 10/19/17 22:00 Dose: 10 mg - Labs Labs: 10/17/17 05:30 10/15/17 08:22 - Extremities Exam Additional comments: Right hip: dry. minimal erythema improved from yesterday, still noted area of swelling. Not erythematous at this point. Non tender. +ROm ankle/toes, sensation intact +dp/PT pulses, calves soft NT neg homans Assessment and Plan (1) Status post total hip replacement, right Assessment & Plan: s/p R THR cont PT, cont VTE proph d/w Dr. Briceno, agrees with above Status: Acute
[2017-10-20] MEDS: Oxycodone/Acetaminophen 5/325 mg Tab PO PRN (08:20)
[2017-10-20] MEDS: Enoxaparin 40 mg Syringe SC SCH (08:21)
[2017-10-20] MEDS: Olopatadine 0.1% Opht SOLN OU SCH (08:23)
[2017-10-20 08:24] VITALS: BP 122/68; PULSE 73
--- NOTE | 2017-10-20 11:54 | CP.PCM.DIS ---
Provider - Provider Date of Admission: 10/09/17 18:29 Attending physician: Edson Lucas MD Primary care physician: Raffy Ruiz MD Consults: Dr. Briceno Time Spent in preparation of Discharge (in minutes): 30 Diagnosis - Discharge Diagnosis (1) Status post total hip replacement, right Status: Acute Priority: Low (2) Gait abnormality Status: Acute Priority: Low (3) Postoperative anemia Status: Acute Priority: Low (4) Hypertension Status: Chronic Priority: Low (5) Osteoarthritis (arthritis due to wear and tear of joints) Status: Chronic Priority: Low (6) Anxiety Status: Chronic Priority: Low Hospital Course - Lab Results Lab Results: Micro Results 10/11/17 20:05 Blood Blood Culture - Final NO GROWTH AFTER 5 DAYS 10/11/17 20:05 Blood Gram Stain - Final TEST NOT PERFORMED 10/12/17 12:11 Urine Urine Culture - Final No Growth (<1,000 CFU/ML) Most Recent Lab Values WBC 7.8 K/uL (4.8-10.8) 10/17/17 05:30 RBC 3.39 Mil/uL (4.40-5.90) L 10/17/17 05:30 Hgb 9.6 g/dL (12.0-18.0) L 10/17/17 05:30 Hct 29.4 % (35.0-51.0) L 10/17/17 05:30 MCV 86.8 fl (80.0-94.0) 10/17/17 05:30 MCH 28.3 pg (27.0-31.0) 10/17/17 05:30 MCHC 32.7 g/dL (33.0-37.0) L 10/17/17 05:30 RDW 13.7 % (11.5-14.5) 10/17/17 05:30 Plt Count 352 K/uL (130-400) 10/17/17 05:30 MPV 7.3 fl (7.2-11.7) 10/17/17 05:30 Neut % (Auto) 63.1 % (50.0-75.0) 10/17/17 05:30 Lymph % (Auto) 20.9 % (20.0-40.0) 10/17/17 05:30 [place] % (Auto) 8.4 % (0.0-10.0) 10/17/17 05:30 Eos % (Auto) 6.9 % (0.0-4.0) H 10/17/17 05:30 Baso % (Auto) 0.7 % (0.0-2.0) 10/17/17 05:30 Neut # 4.9 K/uL (1.8-7.0) 10/17/17 05:30 Lymph # 1.6 K/uL (1.0-4.3) 10/17/17 05:30 [place] # 0.7 K/uL (0.0-0.8) 10/17/17 05:30 Eos # 0.5 K/uL (0.0-0.7) 10/17/17 05:30 Baso # 0.1 K/uL (0.0-0.2) 10/17/17 05:30 Sodium 141 mmol/l (132-148) 10/15/17 08:22 Potassium 4.0 MMOL/L (3.6-5.0) 10/15/17 08:22 Chloride 100 mmol/L (98-107) 10/15/17 08:22 Carbon Dioxide 33 mmol/L (22-30) H 10/15/17 08:22 Anion Gap 12 (10-20) 10/15/17 08:22 BUN 13 mg/dl (9-20) 10/15/17 08:22 Creatinine 0.7 mg/dl (0.8-1.5) L 10/15/17 08:22 Est GFR ( Amer) > 60 10/15/17 08:22 Est GFR (Non-Af Amer) > 60 10/15/17 08:22 Random Glucose 90 mg/dL (75-110) 10/15/17 08:22 Calcium 8.7 mg/dL (8.4-10.2) 10/15/17 08:22 Urine Color [place] (YELLOW) 10/12/17 12:11 Urine Clarity Slighty-cloudy (Clear) 10/12/17 12:11 Urine pH 6.0 (5.0-8.0) 10/12/17 12:11 Ur Specific [place] 1.025 (1.003-1.030) 10/12/17 12:11 Urine Protein 30 mg/dL (NEGATIVE) 10/12/17 12:11 Urine Glucose (UA) Neg mg/dL (Normal) 10/12/17 12:11 Urine Ketones Negative mg/dL (NEGATIVE) 10/12/17 12:11 Urine Blood Negative (NEGATIVE) 10/12/17 12:11 Urine Nitrate Negative (NEGATIVE) 10/12/17 12:11 Urine Bilirubin Negative (NEGATIVE) 10/12/17 12:11 Urine Urobilinogen 4.0 mg/dL (0.2-1.0) 10/12/17 12:11 Ur Leukocyte Esterase Neg Heidi/uL (Negative) 10/12/17 12:11 Urine RBC (Auto) 5 /hpf (0-3) H 10/12/17 12:11 Urine Microscopic WBC 1 /hpf (0-5) 10/12/17 12:11 Blood Type B NEGATIVE 10/13/17 09:07 Antibody Screen Negative 10/13/17 09:07 Crossmatch See Detail 10/13/17 09:07 BBK History Checked Patient has bt 10/13/17 09:07 - Hospital Course Hospital Course: 62 yr old M s/p total right hip replacement for osteoarthritis with chronic pain refractory to conservative treatment. Patient is medically stable for discharge from TCU with instructions to follow up with PMD Dr. Ruiz within 1 week, follow up with Dr. Briceno within 1 week, take medications as prescribed. - Date & Time of H&P Date of H&P: 10/10/17 Time of H&P: 10:44 Discharge Exam - Head Exam Head Exam: ATRAUMATIC, NORMAL INSPECTION, NORMOCEPHALIC - Eye Exam Eye Exam: EOMI - ENT Exam ENT Exam: Mucous Membranes Moist - Neck Exam Neck exam: Full Rom - Respiratory Exam Respiratory Exam: Clear to PA & Lateral, NORMAL BREATHING PATTERN - Cardiovascular Exam Cardiovascular Exam: REGULAR RHYTHM, +S1, +S2 - GI/Abdominal Exam GI & Abdominal Exam: Normal Bowel Sounds, Soft. absent: Tenderness - Extremities Exam Extremities exam: full ROM - Neurological Exam Neurological exam: Alert, CN II-XII Intact, Oriented x3 - Psychiatric Exam Psychiatric exam: Normal Affect, Normal Mood - Skin Skin Exam: Dry, Warm Discharge Plan - Discharge Medications Prescriptions: Alprazolam [Xanax] 2 mg PO TID PRN #30 tablet PRN Reason: Anxiety Aspirin [Aspirin EC] 325 mg PO DAILY #90 ect Cephalexin [Keflex] 500 mg PO TID #30 capsule Docusate [Colace] 100 mg PO BID #60 cap Ferrous Sulfate [Feosol] 325 mg PO BID #60 tab Pantoprazole Sodium [Protonix] 40 mg PO DAILY #30 tablet. Zolpidem Tartrate [Ambien] 10 mg PO HS #30 tablet - Follow Up Plan Condition: GOOD Disposition: HOME/ ROUTINE Instructions: Total Hip Replacement (DC) Additional Instructions: -Follow up with PMD Dr. Ruiz within 1 week, follow up with Dr. Briceno within 1 week, take medications as prescribed -As per Janak ,Continue to take keflex po until redness swelling and erythema resolved . Referrals: Curt Briceno III, MD [Staff Provider] - Raffy Ruiz MD [Primary Care Provider] - Clinical Quality Measures - Date & Time of Discharge Summary Date of Discharge Summary: 10/20/17 Time of Discharge Summary: 11:54
--- NOTE | 2017-10-20 12:20 | CP.PCM.PN ---
Subjective - Date & Time of Evaluation Date of Evaluation: 10/20/17 Time of Evaluation: 10:00 - Subjective Subjective: patient with no hip pain Objective - Vital Signs/Intake and Output Vital Signs (last 24 hours): Temp Pulse Resp BP Pulse Ox 97.9 F 73 20 122/68 98 10/20/17 09:54 10/20/17 09:54 10/20/17 09:54 10/20/17 09:54 10/20/17 09:54 - Medications Medications: Current Medications Acetaminophen (Tylenol 325mg Tab) 650 mg PO Q6 PRN PRN Reason: Temperature Last Admin: 10/11/17 20:12 Dose: 650 mg Alprazolam (Xanax) 2 mg PO TID PRN PRN Reason: Anxiety Last Admin: 10/19/17 21:33 Dose: 2 mg Amlodipine Besylate (Norvasc) 10 mg PO DAILY [facility] Last Admin: 10/20/17 08:22 Dose: 10 mg Atorvastatin Calcium (Lipitor) 10 mg PO HS [facility] Last Admin: 10/19/17 21:31 Dose: 10 mg Diphenhydramine HCl (Benadryl) 25 mg PO Q8 PRN PRN Reason: Itching / Pruritus Docusate Sodium (Colace) 100 mg PO BID [facility] Last Admin: 10/20/17 08:22 Dose: 100 mg Enoxaparin Sodium (Lovenox) 40 mg SC DAILY [facility] PRN Reason: Protocol Last Admin: 10/20/17 08:21 Dose: 40 mg Ferrous Sulfate (Feosol) 325 mg PO DAILY [facility] Last Admin: 10/20/17 08:23 Dose: 325 mg Guaifenesin/Dextromethorphan (Robitussin Dm) 10 ml PO Q6 PRN PRN Reason: Cough Last Admin: 10/19/17 12:52 Dose: 10 ml Cefazolin Sodium/Dextrose (Ancef Iv 2 Gm Duplex) 2 gm in 50 mls @ 50 mls/hr IVPB Q8@0500,1300,2100 [facility] PRN Reason: Protocol Last Admin: 10/20/17 05:13 Dose: 50 mls/hr Lactulose (Enulose) 20 gm PO DAILY PRN PRN Reason: Constipation Last Admin: 10/16/17 08:42 Dose: 20 gm Olopatadine HCl (Patanol 0.1% Opht Soln) 1 drop OU BID [facility] Last Admin: 10/20/17 08:23 Dose: 1 u Ondansetron HCl (Zofran Inj) 4 mg IVP Q4 PRN PRN Reason: Nausea/Vomiting Last Admin: 10/11/17 12:45 Dose: 4 mg Oxycodone/Acetaminophen (Percocet 5/325 Mg Tab) 2 tab PO Q4 PRN PRN Reason: Pain, severe (8-10) Stop: 10/22/17 16:00 Last Admin: 10/20/17 08:20 Dose: 2 tab Sertraline HCl (Zoloft) 50 mg PO [facility] Last Admin: 10/19/17 21:31 Dose: 50 mg Tamsulosin HCl (Flomax) 0.4 mg PO DAILY [facility] Last Admin: 10/20/17 08:22 Dose: 0.4 mg Zolpidem Tartrate (Ambien) 10 mg PO [facility] Last Admin: 10/19/17 22:00 Dose: 10 mg - Labs Labs: 10/17/17 05:30 10/15/17 08:22 - Head Exam Head Exam: ATRAUMATIC, NORMAL INSPECTION, NORMOCEPHALIC - Eye Exam Eye Exam: EOMI, Normal appearance, PERRL Pupil Exam: NORMAL ACCOMODATION - ENT Exam ENT Exam: Mucous Membranes Moist, Normal Exam - Neck Exam Neck Exam: Normal Inspection - Respiratory Exam Respiratory Exam: NORMAL BREATHING PATTERN - Cardiovascular Exam Cardiovascular Exam: REGULAR RHYTHM - GI/Abdominal Exam GI & Abdominal Exam: Soft, Normal Bowel Sounds - Rectal Exam Rectal Exam: NORMAL INSPECTION - Exam External exam: NORMAL EXTERNAL EXAM - Extremities Exam Extremities Exam: Full ROM, Normal Capillary Refill - Back Exam Back Exam: NORMAL INSPECTION - Neurological Exam Neurological Exam: Alert, Awake Neuro motor strength exam: Left Upper Extremity: 4, Right Upper Extremity: 4, Left Lower Extremity: 4, Right Lower Extremity: 3 - Psychiatric Exam Psychiatric exam: Normal Affect, Normal Mood - Skin Skin Exam: Dry, Intact Assessment and Plan (1) Gait abnormality Assessment & Plan: right hip replacment, discussed dc planning with patientt for Dc today right hip healing with dressing follow up with PMd and orth after Dc Status: Acute (2) Postoperative anemia Status: Acute (3) Abnormal EKG Status: Acute (4) Cellulitis of left knee Status: Acute (5) Cellulitis of right knee Status: Acute (6) DVT prophylaxis Status: Acute (7) Fever Status: Acute (8) Gait difficulty Status: Acute
== END 2017-10-20 12:30 | disposition home health service (06) | DRG 560 ==
LOC: H.TCU 18:29
PROVIDERS: ADMIT Family Medicine; ATTEND Family Medicine
PROC: F07Z9FZ Gait Training/Functional Ambulation Treatment using Assistive, Adaptive, Supportive or Protective Equipment (ICD-10-PCS; principal; 2017-10-09)
PROC: F07M6FZ Therapeutic Exercise Treatment of Musculoskeletal System - Whole Body using Assistive, Adaptive, Supportive or Protective Equipment (ICD-10-PCS; 2017-10-09)
PROC: F08Z4FZ Home Management Treatment using Assistive, Adaptive, Supportive or Protective Equipment (ICD-10-PCS; 2017-10-09)
DX: Z47.1 Aftercare following joint replacement surgery (principal); D62 Acute posthemorrhagic anemia; L03.115 Cellulitis of right lower limb; L03.116 Cellulitis of left lower limb; Z96.641 Presence of right artificial hip joint; Z96.651 Presence of right artificial knee joint; E78.00 Pure hypercholesterolemia, unspecified; E78.5 Hyperlipidemia, unspecified; F41.9 Anxiety disorder, unspecified; Z96.1 Presence of intraocular lens; I10 Essential (primary) hypertension; K59.00 Constipation, unspecified; M19.90 Unspecified osteoarthritis, unspecified site; R50.82 Postprocedural fever; G89.29 Other chronic pain; H57.8 Other specified disorders of eye and adnexa; R10.13 Epigastric pain; R11.0 Nausea; R23.1 Pallor; R26.9 Unspecified abnormalities of gait and mobility; R94.31 Abnormal electrocardiogram [ECG] [EKG]; Z98.42 Cataract extraction status, left eye; Z98.41 Cataract extraction status, right eye